=== PATIENT | female | born 1935 | race Caucasian/White ===

== ENCOUNTER 2018-02-03 16:54 | Inpatient (IN) | payer MEDICARE, OTHER ==
[~2018-02-03] VITALS: Ht 170.2 cm; Wt 46.0 kg
[~2018-02-03 16:54] MED LIST: ALPR-623 PO; ASPI-1264 PO; ATOR20TA PO; BUTA-281 PO; CARV6.252 PO; DIGO125T PO; FENO135C PO; FURO-150 PO; ISOS30TA9 PO; LANTUS SUBCUT; LISI-604 PO; NITR0.4T48 SL; OMEG1CAP PO; POTA10TA19 PO; SYN0.112T PO; ZOLP10TA5 PO
[2018-02-03 17:24] LABS: BASOPHILS # (AUTO) 0.1 X10'3 (0-0.2); BASOPHILS % (AUTO) 1.2 % (0-1); EOSINOPHILS # (AUTO) 0.2 X10'3 (0-0.9); EOSINOPHILS % (AUTO) 1.7 % (0-6); HEMATOCRIT 45.4 % (35.0-45.0); HEMOGLOBIN 15.1 g/dl (12.0-16.0); LYMPHOCYTES # (AUTO) 3.6 X10'3 (1.1-4.8); LYMPHOCYTES % (AUTO) 28.8 % (21-51); MEAN CORPUSCULAR HEMOGLOBIN 30.1 PG (27.0-31.0); MEAN CORPUSCULAR HGB CONC 33.3 % (33.0-36.5); MEAN CORPUSCULAR VOLUME 90.2 FL (78-98); MEAN PLATELET VOLUME 7.8 FL (7.4-10.4); MONOCYTES # (AUTO) 1.4 X10'3 (0-0.9); MONOCYTES % (AUTO) 11.4 % (2-12); NEUTROPHILS # (AUTO) 7.1 X10'3 (1.8-7.7); NEUTROPHILS % (AUTO) 56.9 % (42-75); PLATELET COUNT 317 X10'3 (140-440); RED BLOOD COUNT 5.03 X10'6 (4.20-5.60); RED CELL DISTRIBUTION WIDTH 13.6 % (11.5-14.5); WHITE BLOOD COUNT 12.4 X10'3 (4.5-11.0)
[2018-02-03 17:35] LABS: PARTIAL THROMBOPLASTIN TIME 24 SECONDS (22-32); PROTHROMBIN TIME 10.1 SECONDS (9.0-12.0)
[2018-02-03 17:40] LABS: ALANINE AMINOTRANSFERASE 39 U/L (12-78); ALBUMIN/GLOBULIN RATIO 0.9 (1.1-1.5); ALKALINE PHOSPHATASE 67 IU/L (46-116); ANION GAP 13 (8-16); ASPARTATE AMINO TRANSFERASE 28 U/L (10-37); BILIRUBIN,TOTAL 0.5 MG/DL (0.1-1.0); BLOOD UREA NITROGEN 40 MG/DL (7-18); BUN/CREATININE RATIO 25.6 (6.6-38.0); CHLORIDE 97 MMOL/L (99-107); CREATININE 1.56 MG/DL (0.40-0.90); GLUCOSE 257 MG/DL (70-104); POTASSIUM 3.7 MMOL/L (3.5-5.1); SODIUM 135 MMOL/L (135-145); TOTAL CARBON DIOXIDE 24.8 MMOL/L (24-32); TOTAL PROTEIN 8.5 G/DL (6.4-8.2); eGFR 32 ML/MIN
[2018-02-03] MEDS ORDERED: normal saline 1000ml 1,000 ML IV ONE (17:50)
[2018-02-03] MEDS ORDERED: LIDOcaine 1% 30ml preserv. free vial IJ ONE (18:05)
[2018-02-03] MEDS ORDERED: HYDROcodone/acetaminophen 5mg/325mg tablet PO ONE (18:45)
[2018-02-03] MEDS ORDERED: morphine 4 MG/ML inj SYRINge IV ONE (20:40)
[2018-02-03] MEDS ORDERED: temazepam 15mg capsule PO PRN (21:00)
[2018-02-03] MEDS ORDERED: magnesium 4gm in 100ml NS 100 ML IV PRN (22:45)
[2018-02-03] MEDS ORDERED: magnesium 1gm/100ml D5W IVPB 100 ML IV PRN (22:45)
[2018-02-03] MEDS ORDERED: potassium Cl 40MEQ/NS 500ml 500 ML IV PRN ×2 (22:45)
[2018-02-03] MEDS ORDERED: acetaminophen 325mg tablet PO PRN ×2 (22:45)
[2018-02-03] MEDS ORDERED: magnesium hydroxide 30ml (MOM) UD suspension PO PRN (22:45)
[2018-02-03] MEDS ORDERED: magnesium Cl slow-release 64mg tablet PO PRN (22:45)
[2018-02-03] MEDS ORDERED: HYDROmorphone inj. 0.5 MG/0.5 ML DISP.SYRIN IV PRN ×2 (22:45)
[2018-02-03] MEDS ORDERED: ondansetron/PF 4mg/2ml inj IV PRN (22:45)
[2018-02-03] MEDS ORDERED: mag hydrox/Alum hydrox/simeth 30ml oral suspension PO PRN (22:45)
[2018-02-03] MEDS ORDERED: potassium Cl 20 mEq SR tablet PO PRN ×2 (22:45)
[2018-02-03] MEDS ORDERED: nitroGLYCERIN 0.4mg SUBLingual tab SL PRN (22:55)
[2018-02-03] MEDS ORDERED: non-formulary drug (Zolpidem Tartrate* (Ambien*) 1 TAB) PO SCH (22:55)
[2018-02-03] MEDS ORDERED: ALPRAZolam 0.25mg tablet PO PRN (22:55)
[2018-02-03 23:28] LABS: CLARITY,URINE CLEAR (Clear); COLOR,URINE YELLOW (Yellow); GLUCOSE, URINE NEGATIVE (Neg); KETONES,URINE NEGATIVE (Neg); LEUKOCYTE ESTERASE ,URINE SMALL (Neg); NITRITES, URINE NEGATIVE (Neg); OCCULT BLOOD,URINE TRACE-INTACT (Neg); PROTEIN,URINE NEGATIVE (Neg); UROBILINOGEN,URINE 0.2 E.U/dL (0.2-1.0)
[2018-02-03 23:35] LABS: UA COLLECTION TYPE CLN CATCH MIDSTREAM
[2018-02-03 23:36] LABS: RBC,URINE 0-2 /HPF (0-2); SQUAMOUS EPITHELIAL CELL,UR MODERATE /LPF (FEW); WBC,URINE 20-30 /HPF (0-4)
[2018-02-03 23:37] LABS: BACTERIA,URINE FEW /HPF (Neg); TRANSITIONAL EPI CELLS,URINE FEW /HPF
[2018-02-03 23:48] LABS: MAGNESIUM 2.3 MG/DL (1.5-2.4); PHOSPHORUS 3.3 MG/DL (2.3-4.5)
[2018-02-04] VITALS: BP 160/61
[2018-02-04] MEDS: normal saline 1000ml 1,000 ML IV SCH ×3 (00:30→21:38)
[2018-02-04] MEDS ORDERED: HYDROmorphone 1 mg/ml syringe ONE (04:41)
[2018-02-04 06:07] LABS: HEMATOCRIT 38.6 % (35.0-45.0); HEMOGLOBIN 13.2 g/dl (12.0-16.0); MEAN CORPUSCULAR HEMOGLOBIN 30.8 PG (27.0-31.0); MEAN CORPUSCULAR HGB CONC 34.2 % (33.0-36.5); MEAN CORPUSCULAR VOLUME 89.9 FL (78-98); PLATELET COUNT 247 X10'3 (140-440); RED CELL DISTRIBUTION WIDTH 13.6 % (11.5-14.5)
[2018-02-04 06:17] LABS: ALBUMIN 3.2 G/DL (3.4-5.0); ANION GAP 12 (8-16); BLOOD UREA NITROGEN 37 MG/DL (7-18); BUN/CREATININE RATIO 31.6 (6.6-38.0); CHLORIDE 102 MMOL/L (99-107); CHOL/HDL RATIO 5.9 (0.00-4.99); CHOLESTEROL 190 MG/DL (0-200); CREATININE 1.17 MG/DL (0.40-0.90); GLUCOSE 197 MG/DL (70-104); HDL CHOLESTEROL 32 MG/DL (35-60); LDL CHOLESTEROL 102 MG/DL (50-100); MAGNESIUM 2.3 MG/DL (1.5-2.4); PHOSPHORUS 3.1 MG/DL (2.3-4.5); POTASSIUM 3.7 MMOL/L (3.5-5.1); SODIUM 138 MMOL/L (135-145); TOTAL CARBON DIOXIDE 24.4 MMOL/L (24-32); TRIGLYCERIDES 371 MG/DL (20-135); eGFR 45 ML/MIN
[2018-02-04 06:46] LABS: HEMOGLOBIN A1C 8.1 % (4.5-6.2)
[2018-02-04] MEDS: lisinopril 5mg tablet PO SCH (07:58)
[2018-02-04] MEDS: digoxin 125mcg (0.125mg) tablet PO SCH (07:59)
[2018-02-04] MEDS: carvedilol 6.25mg tablet PO SCH ×2 (07:59→20:38)
[2018-02-04] MEDS: levoTHYROXINE 112mcg tablet PO SCH (07:59)
[2018-02-04] MEDS: furosemide 40mg tablet PO SCH ×2 (07:59→20:38)
[2018-02-04] MEDS: isosorbide mononitrate 30mg tab.SR.24H PO SCH (08:00)
[2018-02-04] MEDS: fenofibrate 145mg tablet PO SCH (08:00)
[2018-02-04] MEDS: potassium chloride 10mEq ER tablet PO SCH (08:00)
[2018-02-04] MEDS ORDERED: isosorbide dinitrate 30mg tablet PO SCH (08:00)
[2018-02-04] MEDS: K and/or MAG REPLACEMENT MC SCH (08:00)
[2018-02-04] MEDS: HYDROcodone/acetaminophen 10/325mg tab PO PRN ×3 (08:41→19:04)
[2018-02-04] MEDS ORDERED: dextrose 50%-water 50ml dispensing syringe IV PRN ×2 (09:40)
[2018-02-04] MEDS ORDERED: MESSAGE TO PHARMACY PO ONE (09:40)
[2018-02-04] MEDS ORDERED: glucagon, human recombinant 1mg kit SUBCUT PRN (09:40)
[2018-02-04] MEDS ORDERED: dextrose ORAL solution 15 GM/59 ML bottle PO PRN ×2 (09:40)
[2018-02-04 10:00] VITALS: BP 138/54
[2018-02-04] MEDS: CefTRIAXone/D5W-Rocephin 1gm 50 ML IV SCH (10:17)
[2018-02-04] MEDS ORDERED: HYDROmorphone 1 mg/ml syringe IV PRN (13:37)
[2018-02-04] MEDS: insulin Lispro (HumaLOG) vial - multi-dose SQ SCH ×2 (13:49→19:06)
[2018-02-04 18:00] VITALS: BP 117/43
[2018-02-04] MEDS ORDERED: atorvastatin 10mg tablet PO SCH (21:00)
[2018-02-04] MEDS ORDERED: insulin glargine (Lantus) pen - multi-dose SQ SCH ×2 (21:00)
[2018-02-04 22:00] VITALS: BP 110/53
[2018-02-05 02:00] VITALS: BP 92/52
[2018-02-05] MEDS: normal saline 1000ml 1,000 ML IV SCH (02:59)
[2018-02-05] MEDS: HYDROcodone/acetaminophen 10/325mg tab PO PRN (04:55)
[2018-02-05 05:57] LABS: HEMATOCRIT 34.1 % (35.0-45.0); HEMOGLOBIN 11.4 g/dl (12.0-16.0); MEAN CORPUSCULAR HEMOGLOBIN 30.3 PG (27.0-31.0); MEAN CORPUSCULAR HGB CONC 33.6 % (33.0-36.5); MEAN CORPUSCULAR VOLUME 90.1 FL (78-98); MEAN PLATELET VOLUME 7.7 FL (7.4-10.4); PLATELET COUNT 255 X10'3 (140-440); RED BLOOD COUNT 3.78 X10'6 (4.20-5.60); WHITE BLOOD COUNT 9.2 X10'3 (4.5-11.0)
[2018-02-05 06:00] VITALS: BP 168/45
[2018-02-05 07:00] LABS: ALBUMIN 2.8 G/DL (3.4-5.0); ANION GAP 4 (8-16); BLOOD UREA NITROGEN 42 MG/DL (7-18); BUN/CREATININE RATIO 29.8 (6.6-38.0); CALCIUM 8.2 MG/DL (8.5-10.1); CHLORIDE 104 MMOL/L (99-107); CREATININE 1.41 MG/DL (0.40-0.90); GLUCOSE 167 MG/DL (70-104); MAGNESIUM 2.4 MG/DL (1.5-2.4); PHOSPHORUS 3.2 MG/DL (2.3-4.5); POTASSIUM 3.6 MMOL/L (3.5-5.1); SODIUM 134 MMOL/L (135-145); TOTAL CARBON DIOXIDE 26.3 MMOL/L (24-32); eGFR 36 ML/MIN
[2018-02-05] MEDS: K and/or MAG REPLACEMENT MC SCH (07:48)
[2018-02-05] MEDS: fenofibrate 145mg tablet PO SCH (07:52)
[2018-02-05] MEDS: isosorbide mononitrate 30mg tab.SR.24H PO SCH (07:52)
[2018-02-05] MEDS: potassium chloride 10mEq ER tablet PO SCH (07:52)
[2018-02-05] MEDS: lisinopril 5mg tablet PO SCH (07:52)
[2018-02-05] MEDS: levoTHYROXINE 112mcg tablet PO SCH (07:53)
[2018-02-05] MEDS: furosemide 40mg tablet PO SCH (07:53)
[2018-02-05] MEDS: carvedilol 6.25mg tablet PO SCH (07:53)
[2018-02-05] MEDS: digoxin 125mcg (0.125mg) tablet PO SCH (07:55)
[2018-02-05] MEDS: CefTRIAXone/D5W-Rocephin 1gm 50 ML IV SCH (07:55)
[2018-02-05] MEDS: HYDROcodone/acetaminophen 5mg/325mg tablet PO PRN ×2 (08:31→12:30)
[2018-02-05] MEDS: insulin Lispro (HumaLOG) vial - multi-dose SQ SCH ×2 (08:35→13:22)
[2018-02-05 10:00] VITALS: BP 118/58
[2018-02-05 10:30] VITALS: BP 133/41
[2018-02-05] MEDS ORDERED: FURO-150 PO (13:08)
[2018-02-05] MEDS ORDERED: LEVO500T2 PO (13:13)
[2018-02-05] MEDS ORDERED: HYDR-565 PO (14:51)
[2018-02-05] MEDS ORDERED: lactobacillus rhamnosus 10,000 MMU CELLS/CAPSULE PO SCH (20:00)
== END 2018-02-05 16:07 | disposition home or self-care (01) | DRG 683 ==
LOC: ER 16:55 → ED HOLD 22:45 → ORTHO 4S 23:59
PROVIDERS: ADMIT Family Medicine; ATTEND Internal Medicine
PROC: 2W38X1Z Immobilization of Right Upper Extremity using Splint (ICD-10-PCS; principal; 2018-02-03)
PROC: 4B02XSZ Measurement of Cardiac Pacemaker, External Approach (ICD-10-PCS; 2018-02-03)
PROC: 4A10X4Z Monitoring of Central Nervous Electrical Activity, External Approach (ICD-10-PCS; 2018-02-04)
DX: N17.9 Acute kidney failure, unspecified (principal); S42.201A Unspecified fracture of upper end of right humerus, initial encounter for closed fracture; I50.22 Chronic systolic (congestive) heart failure; N39.0 Urinary tract infection, site not specified; I13.0 Hypertensive heart and chronic kidney disease with heart failure and stage 1 through stage 4 chronic kidney disease, or unspecified chronic kidney disease; E86.0 Dehydration; E03.9 Hypothyroidism, unspecified; E11.51 Type 2 diabetes mellitus with diabetic peripheral angiopathy without gangrene; E78.5 Hyperlipidemia, unspecified; W18.39XA Other fall on same level, initial encounter; F41.9 Anxiety disorder, unspecified; F32.9 Major depressive disorder, single episode, unspecified; G43.909 Migraine, unspecified, not intractable, without status migrainosus; I08.1 Rheumatic disorders of both mitral and tricuspid valves; I27.20 Pulmonary hypertension, unspecified; E11.22 Type 2 diabetes mellitus with diabetic chronic kidney disease; I25.10 Atherosclerotic heart disease of native coronary artery without angina pectoris; Z60.2 Problems related to living alone; Z66 Do not resuscitate; Z53.20 Procedure and treatment not carried out because of patient's decision for unspecified reasons; Z90.49 Acquired absence of other specified parts of digestive tract; Z95.0 Presence of cardiac pacemaker; Z95.1 Presence of aortocoronary bypass graft; Z95.5 Presence of coronary angioplasty implant and graft; Z79.82 Long term (current) use of aspirin; Z79.4 Long term (current) use of insulin; Z79.890 Hormone replacement therapy; Z79.899 Other long term (current) drug therapy; Z95.820 Peripheral vascular angioplasty status with implants and grafts; Z87.891 Personal history of nicotine dependence; Y93.89 Activity, other specified; Y92.89 Other specified places as the place of occurrence of the external cause; Y99.8 Other external cause status
CPT/HCPCS: 36415; 70450; 71045; 72125; 73030; 80048; 80053; 80061; 80162; 81001; 82948; 83036; 83735; 84100; 84443; 84484; 85025; 85027; 85610; 85730; 86885; 86900; 86901; 87070; 87088; 93005; 93306; 95816; 96361; 96374; 97116; 97161; 99285; A6449; J0696; J1170; J1815; J2270; J3490; J7030

== ENCOUNTER 2018-02-08 11:34 | Inpatient (IN) | payer MEDICARE, OTHER ==
[~2018-02-08] VITALS: Ht 170.2 cm; Wt 46.8 kg
[~2018-02-08 11:34] MED LIST changes: +HYDR-565 PO; +LEVO500T2 PO
[2018-02-08] MEDS ORDERED: HYDROcodone/acetaminophen 5mg/325mg tablet PO ONE (12:50)
[2018-02-08] MEDS ORDERED: ondansetron/PF 4mg/2ml inj IV ONE (14:00)
[2018-02-08] MEDS ORDERED: morphine 4 MG/ML inj SYRINge IV ONE (14:00)
[2018-02-08 14:27] LABS: BASOPHILS % (AUTO) 0.4 % (0-1); EOSINOPHILS # (AUTO) 0.5 X10'3 (0-0.9); EOSINOPHILS % (AUTO) 4.7 % (0-6); HEMOGLOBIN 12.4 g/dl (12.0-16.0); MEAN CORPUSCULAR HEMOGLOBIN 30.4 PG (27.0-31.0); MEAN CORPUSCULAR HGB CONC 33.5 % (33.0-36.5); MEAN CORPUSCULAR VOLUME 90.6 FL (78-98); MEAN PLATELET VOLUME 7.7 FL (7.4-10.4); MONOCYTES # (AUTO) 0.9 X10'3 (0-0.9); MONOCYTES % (AUTO) 8.6 % (2-12); NEUTROPHILS # (AUTO) 6.6 X10'3 (1.8-7.7); NEUTROPHILS % (AUTO) 59.3 % (42-75); PLATELET COUNT 297 X10'3 (140-440); RED BLOOD COUNT 4.08 X10'6 (4.20-5.60); RED CELL DISTRIBUTION WIDTH 13.9 % (11.5-14.5); WHITE BLOOD COUNT 11.1 X10'3 (4.5-11.0)
[2018-02-08 14:38] LABS: PARTIAL THROMBOPLASTIN TIME 25 SECONDS (22-32); PROTHROMBIN TIME 9.9 SECONDS (9.0-12.0)
[2018-02-08 14:44] LABS: ALANINE AMINOTRANSFERASE 29 U/L (12-78); ALBUMIN 3.2 G/DL (3.4-5.0); ALBUMIN/GLOBULIN RATIO 0.8 (1.1-1.5); ALKALINE PHOSPHATASE 57 IU/L (46-116); ANION GAP 10 (8-16); ASPARTATE AMINO TRANSFERASE 18 U/L (10-37); BILIRUBIN,TOTAL 0.4 MG/DL (0.1-1.0); BLOOD UREA NITROGEN 27 MG/DL (7-18); BUN/CREATININE RATIO 23.1 (6.6-38.0); CALCIUM 9.1 MG/DL (8.5-10.1); CHLORIDE 104 MMOL/L (99-107); CREATININE 1.17 MG/DL (0.40-0.90); GLUCOSE 201 MG/DL (70-104); POTASSIUM 4.5 MMOL/L (3.5-5.1); SODIUM 137 MMOL/L (135-145); TOTAL CARBON DIOXIDE 23.2 MMOL/L (24-32); eGFR 45 ML/MIN
[2018-02-08] MEDS ORDERED: BENZ-16 PO (15:51)
[2018-02-08] MEDS ORDERED: PRED20TA PO (15:51)
[2018-02-08] MEDS ORDERED: LEVO750T21 PO (15:51)
[2018-02-08] MEDS ORDERED: ALBU8.5H8 IH (15:51)
[2018-02-08] MEDS ORDERED: FENO135C PO (16:52)
[2018-02-08] MEDS ORDERED: ipratropium/albuterol 3ml nebule NEB PRN (16:55)
[2018-02-08] MEDS ORDERED: morphine 2 MG/ML inj. syringe IV PRN (16:55)
[2018-02-08] MEDS ORDERED: potassium Cl 20 mEq SR tablet PO PRN ×2 (16:55)
[2018-02-08] MEDS ORDERED: magnesium 4gm in 100ml NS 100 ML IV PRN (16:55)
[2018-02-08] MEDS ORDERED: magnesium 1gm/100ml D5W IVPB 100 ML IV PRN (16:55)
[2018-02-08] MEDS ORDERED: acetaminophen 325mg tablet PO PRN (16:55)
[2018-02-08] MEDS ORDERED: magnesium hydroxide 30ml (MOM) UD suspension PO PRN (16:55)
[2018-02-08] MEDS ORDERED: potassium Cl 40MEQ/NS 500ml 500 ML IV PRN ×2 (16:55)
[2018-02-08] MEDS ORDERED: ondansetron/PF 4mg/2ml inj IV PRN (16:55)
[2018-02-08] MEDS ORDERED: mag hydrox/Alum hydrox/simeth 30ml oral suspension PO PRN (16:55)
[2018-02-08] MEDS ORDERED: benzonatate 100mg capsule PO PRN (17:00)
[2018-02-08] MEDS ORDERED: butalbital/acetaminophen/caffeine (Fioricet) tablet PO PRN (17:00)
[2018-02-08] MEDS ORDERED: MESSAGE TO PHARMACY PO ONE (17:05)
[2018-02-08] MEDS ORDERED: glucagon, human recombinant 1mg kit SUBCUT PRN (17:05)
[2018-02-08] MEDS ORDERED: dextrose ORAL solution 15 GM/59 ML bottle PO PRN ×2 (17:05)
[2018-02-08] MEDS ORDERED: dextrose 50%-water 50ml dispensing syringe IV PRN ×2 (17:05)
[2018-02-08] MEDS ORDERED: zolpidem 5mg tablet PO PRN (17:20)
[2018-02-08] MEDS: morphine 2 MG/ML inj. syringe IV PRN (18:10)
[2018-02-08] MEDS: lisinopril 5mg tablet PO SCH (18:10)
[2018-02-08] MEDS: carvedilol 6.25mg tablet PO SCH (19:18)
[2018-02-08] MEDS: acetaminophen 325mg tablet PO PRN (19:18)
[2018-02-08] MEDS: furosemide 20MG tablet PO SCH (19:18)
[2018-02-08] MEDS: omega-3 acid ethyl esters 1GM capsule PO SCH (20:00)
[2018-02-08 21:00] VITALS: BP 169/45
[2018-02-08] MEDS: insulin glargine (Lantus) pen - multi-dose SQ SCH (21:00)
[2018-02-08] MEDS: atorvastatin 20mg tablet PO SCH (21:59)
[2018-02-09] MEDS: heparin, porcine 5000 units/ml vial SQ SCH
[2018-02-09] MEDS: morphine 2 MG/ML inj. syringe IV PRN ×4 (02:34→19:08)
[2018-02-09 06:00] VITALS: BP 166/55
[2018-02-09 06:01] LABS: BASOPHILS # (AUTO) 0.1 X10'3 (0-0.2); BASOPHILS % (AUTO) 0.7 % (0-1); EOSINOPHILS # (AUTO) 0.9 X10'3 (0-0.9); EOSINOPHILS % (AUTO) 8.7 % (0-6); HEMATOCRIT 39.5 % (35.0-45.0); HEMOGLOBIN 13.5 g/dl (12.0-16.0); LYMPHOCYTES # (AUTO) 3.2 X10'3 (1.1-4.8); LYMPHOCYTES % (AUTO) 32.6 % (21-51); MEAN CORPUSCULAR HEMOGLOBIN 30.7 PG (27.0-31.0); MEAN CORPUSCULAR HGB CONC 34.2 % (33.0-36.5); MEAN CORPUSCULAR VOLUME 89.8 FL (78-98); MEAN PLATELET VOLUME 7.9 FL (7.4-10.4); MONOCYTES % (AUTO) 10.1 % (2-12); NEUTROPHILS # (AUTO) 4.8 X10'3 (1.8-7.7); NEUTROPHILS % (AUTO) 47.9 % (42-75); PLATELET COUNT 333 X10'3 (140-440); RED CELL DISTRIBUTION WIDTH 14.4 % (11.5-14.5)
[2018-02-09 06:35] LABS: ALANINE AMINOTRANSFERASE 27 U/L (12-78); ALBUMIN 3.2 G/DL (3.4-5.0); ALBUMIN/GLOBULIN RATIO 0.8 (1.1-1.5); ALKALINE PHOSPHATASE 62 IU/L (46-116); ANION GAP 10 (8-16); ASPARTATE AMINO TRANSFERASE 14 U/L (10-37); BILIRUBIN,TOTAL 0.5 MG/DL (0.1-1.0); BLOOD UREA NITROGEN 24 MG/DL (7-18); BUN/CREATININE RATIO 20.7 (6.6-38.0); CALCIUM 9.1 MG/DL (8.5-10.1); CHLORIDE 104 MMOL/L (99-107); CHOL/HDL RATIO 4.9 (0.00-4.99); CHOLESTEROL 176 MG/DL (0-200); CREATININE 1.16 MG/DL (0.40-0.90); GLUCOSE 169 MG/DL (70-104); HDL CHOLESTEROL 36 MG/DL (35-60); POTASSIUM 4.3 MMOL/L (3.5-5.1); SODIUM 139 MMOL/L (135-145); TOTAL CARBON DIOXIDE 25.4 MMOL/L (24-32); TOTAL PROTEIN 7.3 G/DL (6.4-8.2); TRIGLYCERIDES 267 MG/DL (20-135); eGFR 45 ML/MIN
[2018-02-09] MEDS ORDERED: levoFLOXACIN 750MG TABLET PO SCH (08:00)
[2018-02-09] MEDS: K and/or MAG REPLACEMENT MC SCH (08:00)
[2018-02-09] MEDS: carvedilol 6.25mg tablet PO SCH ×2 (08:16→20:31)
[2018-02-09] MEDS: potassium chloride 10mEq ER tablet PO SCH (08:16)
[2018-02-09] MEDS: furosemide 20MG tablet PO SCH ×2 (08:16→20:31)
[2018-02-09] MEDS: levoTHYROXINE 112mcg tablet PO SCH (08:16)
[2018-02-09] MEDS: lisinopril 5mg tablet PO SCH (08:16)
[2018-02-09] MEDS: omega-3 acid ethyl esters 1GM capsule PO SCH ×2 (08:17→20:31)
[2018-02-09] MEDS: fenofibrate 145mg tablet PO SCH (08:17)
[2018-02-09] MEDS: digoxin 125mcg (0.125mg) tablet PO SCH (08:21)
[2018-02-09 10:00] VITALS: BP 165/68
[2018-02-09] MEDS: insulin Lispro (HumaLOG) vial - multi-dose SQ SCH ×3 (10:36→19:13)
[2018-02-09 13:40] LABS: LDL CHOLESTEROL 100 MG/DL (50-100)
[2018-02-09] MEDS ORDERED: ceFAZolin 1GM/D5W- ADD-VANTAGE 50 ML IV ONE (16:00)
[2018-02-09] MEDS: isosorbide dinitrate 30mg tablet PO SCH (17:31)
[2018-02-09 18:00] VITALS: BP 188/50
[2018-02-09] MEDS: ALPRAZolam 0.25mg tablet PO PRN (20:30)
[2018-02-09] MEDS: lactobacillus rhamnosus 10,000 MMU CELLS/CAPSULE PO SCH (20:30)
[2018-02-09] MEDS: atorvastatin 20mg tablet PO SCH (20:31)
[2018-02-09] MEDS: lisinopril 20mg tablet PO SCH (21:03)
[2018-02-09] MEDS: insulin glargine (Lantus) pen - multi-dose SQ SCH (21:05)
[2018-02-09 22:00] VITALS: BP 115/52
[2018-02-10] VITALS (17 sets, daily range): BP systolic 103–178; BP diastolic 34–85
[2018-02-10 06:10] LABS: BASOPHILS % (AUTO) 0.5 % (0-1); EOSINOPHILS # (AUTO) 0.5 X10'3 (0-0.9); EOSINOPHILS % (AUTO) 5.1 % (0-6); HEMATOCRIT 38.1 % (35.0-45.0); HEMOGLOBIN 12.9 g/dl (12.0-16.0); LYMPHOCYTES # (AUTO) 2.7 X10'3 (1.1-4.8); LYMPHOCYTES % (AUTO) 28.8 % (21-51); MEAN CORPUSCULAR HEMOGLOBIN 31.1 PG (27.0-31.0); MEAN CORPUSCULAR HGB CONC 33.9 % (33.0-36.5); MEAN CORPUSCULAR VOLUME 91.7 FL (78-98); MEAN PLATELET VOLUME 8.1 FL (7.4-10.4); MONOCYTES # (AUTO) 0.9 X10'3 (0-0.9); MONOCYTES % (AUTO) 9.1 % (2-12); NEUTROPHILS # (AUTO) 5.4 X10'3 (1.8-7.7); NEUTROPHILS % (AUTO) 56.5 % (42-75); PLATELET COUNT 329 X10'3 (140-440); RED BLOOD COUNT 4.16 X10'6 (4.20-5.60); RED CELL DISTRIBUTION WIDTH 13.3 % (11.5-14.5); WHITE BLOOD COUNT 9.5 X10'3 (4.5-11.0)
[2018-02-10 06:13] LABS: ALANINE AMINOTRANSFERASE 20 U/L (12-78); ALBUMIN 2.9 G/DL (3.4-5.0); ALBUMIN/GLOBULIN RATIO 0.7 (1.1-1.5); ALKALINE PHOSPHATASE 63 IU/L (46-116); ANION GAP 9 (8-16); ASPARTATE AMINO TRANSFERASE 21 U/L (10-37); BILIRUBIN,TOTAL 0.5 MG/DL (0.1-1.0); BLOOD UREA NITROGEN 37 MG/DL (7-18); BUN/CREATININE RATIO 21.4 (6.6-38.0); CALCIUM 9.1 MG/DL (8.5-10.1); CHLORIDE 102 MMOL/L (99-107); CREATININE 1.73 MG/DL (0.40-0.90); GLUCOSE 161 MG/DL (70-104); POTASSIUM 4.4 MMOL/L (3.5-5.1); SODIUM 135 MMOL/L (135-145); TOTAL CARBON DIOXIDE 23.7 MMOL/L (24-32); TOTAL PROTEIN 6.9 G/DL (6.4-8.2); eGFR 28 ML/MIN
[2018-02-10] MEDS ORDERED: ceFAZolin 1000mg inj ONE (07:31)
[2018-02-10] MEDS: carvedilol 6.25mg tablet PO SCH ×2 (07:47→20:14)
[2018-02-10] MEDS: levoTHYROXINE 112mcg tablet PO SCH (07:47)
[2018-02-10] MEDS: K and/or MAG REPLACEMENT MC SCH (08:00)
[2018-02-10] MEDS: omega-3 acid ethyl esters 1GM capsule PO SCH ×2 (08:00→20:14)
[2018-02-10] MEDS: heparin, porcine 5000 units/ml vial SQ SCH ×2 (08:00→15:01)
[2018-02-10] MEDS: digoxin 125mcg (0.125mg) tablet PO SCH (08:00)
[2018-02-10] MEDS ORDERED: sevoflurane 250ml liquid IH ONE (08:06)
[2018-02-10] MEDS ORDERED: cloNIDine hcl/PF 100mcg/ml inj ONE (08:14)
[2018-02-10] MEDS ORDERED: ROPIVAcaine 0.5% (5mg/ml) 30ml vial ONE (08:14)
[2018-02-10] MEDS ORDERED: midazolam 2 mg/2 ml injection ONE (08:17)
[2018-02-10] MEDS ORDERED: fentaNYL/PF 50MCG/1 ML 2ML syringe ONE ×3 (08:17→10:04)
[2018-02-10] MEDS ORDERED: etomidate 2mg/ml inj. ONE (08:17)
[2018-02-10] MEDS ORDERED: dexamethasone sod phosphate 4mg/ml inj. ONE (08:25)
[2018-02-10] MEDS ORDERED: ePHEDrine 50MG/ML INJ. ONE (08:36)
[2018-02-10] MEDS ORDERED: ringers solution, lacted 1,000 ML IV SCH (08:59)
[2018-02-10] MEDS ORDERED: labetalol 20mg/4ml (5mg/ml) syringe IV PRN (09:00)
[2018-02-10] MEDS ORDERED: fentaNYL/PF 50MCG/1 ML 2ML syringe IV PRN ×2 (09:00)
[2018-02-10] MEDS ORDERED: morphine 4 MG/ML inj SYRINge IV PRN ×2 (09:00)
[2018-02-10] MEDS ORDERED: ondansetron/PF 4mg/2ml inj IV PRN (09:00)
[2018-02-10] MEDS ORDERED: ondansetron/PF 4mg/2ml inj ONE (09:25)
[2018-02-10] MEDS: insulin Lispro (HumaLOG) vial - multi-dose SQ SCH ×2 (13:16→18:41)
[2018-02-10] MEDS: lisinopril 20mg tablet PO SCH (14:59)
[2018-02-10] MEDS: isosorbide dinitrate 30mg tablet PO SCH (15:01)
[2018-02-10] MEDS: lactobacillus rhamnosus 10,000 MMU CELLS/CAPSULE PO SCH ×2 (16:25→20:14)
[2018-02-10] MEDS: potassium chloride 10mEq ER tablet PO SCH (16:27)
[2018-02-10] MEDS: acetaminophen 325mg tablet PO PRN (16:27)
[2018-02-10] MEDS: fenofibrate 145mg tablet PO SCH (16:27)
[2018-02-10] MEDS: ceFAZolin 1GM/D5W- ADD-VANTAGE 50 ML IV SCH (16:28)
[2018-02-10] MEDS: atorvastatin 20mg tablet PO SCH (21:00)
[2018-02-10] MEDS: insulin glargine (Lantus) pen - multi-dose SQ SCH (21:15)
[2018-02-11] VITALS (9 sets, daily range): BP systolic 86–151; BP diastolic 27–64
[2018-02-11] MEDS: ceFAZolin 1GM/D5W- ADD-VANTAGE 50 ML IV SCH ×4 (00:36→23:51)
[2018-02-11] MEDS: heparin, porcine 5000 units/ml vial SQ SCH ×4 (00:37→23:49)
[2018-02-11] MEDS: morphine 2 MG/ML inj. syringe IV PRN ×3 (00:40→10:41)
[2018-02-11] MEDS: ALPRAZolam 0.25mg tablet PO PRN (01:19)
[2018-02-11] MEDS ORDERED: HYDROcodone/acetaminophen 10/325mg tab PO PRN (05:25)
[2018-02-11 05:42] LABS: BASOPHILS % (AUTO) 0.3 % (0-1); EOSINOPHILS # (AUTO) 0.3 X10'3 (0-0.9); EOSINOPHILS % (AUTO) 2.6 % (0-6); HEMATOCRIT 37.8 % (35.0-45.0); HEMOGLOBIN 12.7 g/dl (12.0-16.0); LYMPHOCYTES # (AUTO) 3.1 X10'3 (1.1-4.8); LYMPHOCYTES % (AUTO) 24.3 % (21-51); MEAN CORPUSCULAR HEMOGLOBIN 30.7 PG (27.0-31.0); MEAN CORPUSCULAR HGB CONC 33.6 % (33.0-36.5); MEAN CORPUSCULAR VOLUME 91.3 FL (78-98); MEAN PLATELET VOLUME 7.6 FL (7.4-10.4); MONOCYTES # (AUTO) 1.1 X10'3 (0-0.9); MONOCYTES % (AUTO) 8.4 % (2-12); NEUTROPHILS # (AUTO) 8.4 X10'3 (1.8-7.7); NEUTROPHILS % (AUTO) 64.4 % (42-75); PLATELET COUNT 340 X10'3 (140-440); RED BLOOD COUNT 4.14 X10'6 (4.20-5.60); RED CELL DISTRIBUTION WIDTH 14.4 % (11.5-14.5)
[2018-02-11 05:59] LABS: ALANINE AMINOTRANSFERASE 21 U/L (12-78); ALBUMIN/GLOBULIN RATIO 0.8 (1.1-1.5); ALKALINE PHOSPHATASE 65 IU/L (46-116); ANION GAP 8 (8-16); ASPARTATE AMINO TRANSFERASE 26 U/L (10-37); BILIRUBIN,TOTAL 0.4 MG/DL (0.1-1.0); BLOOD UREA NITROGEN 38 MG/DL (7-18); BUN/CREATININE RATIO 26.6 (6.6-38.0); CALCIUM 9.5 MG/DL (8.5-10.1); CHLORIDE 104 MMOL/L (99-107); CREATININE 1.43 MG/DL (0.40-0.90); GLUCOSE 135 MG/DL (70-104); MAGNESIUM 2.1 MG/DL (1.5-2.4); POTASSIUM 4.3 MMOL/L (3.5-5.1); SODIUM 138 MMOL/L (135-145); TOTAL CARBON DIOXIDE 25.8 MMOL/L (24-32); TOTAL PROTEIN 6.9 G/DL (6.4-8.2); eGFR 35 ML/MIN
[2018-02-11] MEDS: K and/or MAG REPLACEMENT MC SCH (07:53)
[2018-02-11] MEDS ORDERED: levoFLOXACIN 750MG TABLET PO SCH (08:00)
[2018-02-11] MEDS ORDERED: furosemide 20MG tablet PO SCH (08:00)
[2018-02-11] MEDS: potassium chloride 10mEq ER tablet PO SCH (08:16)
[2018-02-11] MEDS: lactobacillus rhamnosus 10,000 MMU CELLS/CAPSULE PO SCH ×2 (08:16→20:11)
[2018-02-11] MEDS: omega-3 acid ethyl esters 1GM capsule PO SCH ×2 (08:17→20:11)
[2018-02-11] MEDS: levoTHYROXINE 112mcg tablet PO SCH (08:17)
[2018-02-11] MEDS: fenofibrate 145mg tablet PO SCH (08:18)
[2018-02-11] MEDS: lisinopril 20mg tablet PO SCH (08:18)
[2018-02-11] MEDS: isosorbide dinitrate 30mg tablet PO SCH (08:18)
[2018-02-11] MEDS: digoxin 125mcg (0.125mg) tablet PO SCH (08:19)
[2018-02-11] MEDS: carvedilol 6.25mg tablet PO SCH (08:19)
[2018-02-11] MEDS: insulin Lispro (HumaLOG) vial - multi-dose SQ SCH ×3 (08:55→18:51)
[2018-02-11] MEDS ORDERED: normal saline 500ml IV soln 1,000 ML IV SCH (11:20)
[2018-02-11] MEDS ORDERED: normal saline 500ml IV soln 1,000 ML IV ONE (11:25)
[2018-02-11] MEDS: HYDROcodone/acetaminophen 10/325mg tab PO PRN ×3 (12:34→21:40)
[2018-02-11] MEDS: carVEDilol 3.125mg tablet PO SCH (20:00)
[2018-02-11] MEDS: atorvastatin 20mg tablet PO SCH (20:11)
[2018-02-11] MEDS: insulin glargine (Lantus) pen - multi-dose SQ SCH (21:06)
[2018-02-12 01:44] LABS: CLARITY,URINE CLEAR (Clear); COLOR,URINE YELLOW (Yellow); GLUCOSE, URINE NEGATIVE (Neg); KETONES,URINE NEGATIVE (Neg); LEUKOCYTE ESTERASE ,URINE NEGATIVE (Neg); NITRITES, URINE NEGATIVE (Neg); OCCULT BLOOD,URINE NEGATIVE (Neg); PROTEIN,URINE NEGATIVE (Neg); UROBILINOGEN,URINE 0.2 E.U/dL (0.2-1.0)
[2018-02-12 01:46] LABS: UA COLLECTION TYPE NON-SPECIFIED
[2018-02-12] MEDS ORDERED: lisinopril 10 MG tablet PO ONE (04:45)
[2018-02-12 04:46] VITALS: BP 177/50
[2018-02-12] MEDS: HYDROcodone/acetaminophen 10/325mg tab PO PRN ×3 (04:57→13:14)
[2018-02-12 05:13] LABS: BASOPHILS # (AUTO) 0.1 X10'3 (0-0.2); BASOPHILS % (AUTO) 0.6 % (0-1); EOSINOPHILS # (AUTO) 0.5 X10'3 (0-0.9); HEMATOCRIT 32.4 % (35.0-45.0); HEMOGLOBIN 11.1 g/dl (12.0-16.0); LYMPHOCYTES # (AUTO) 2.7 X10'3 (1.1-4.8); LYMPHOCYTES % (AUTO) 26.6 % (21-51); MEAN CORPUSCULAR HGB CONC 34.3 % (33.0-36.5); MEAN CORPUSCULAR VOLUME 90.4 FL (78-98); MEAN PLATELET VOLUME 7.7 FL (7.4-10.4); MONOCYTES % (AUTO) 9.5 % (2-12); NEUTROPHILS % (AUTO) 58.3 % (42-75); PLATELET COUNT 330 X10'3 (140-440); RED BLOOD COUNT 3.58 X10'6 (4.20-5.60); RED CELL DISTRIBUTION WIDTH 14.4 % (11.5-14.5); WHITE BLOOD COUNT 10.3 X10'3 (4.5-11.0)
[2018-02-12 05:43] LABS: ALANINE AMINOTRANSFERASE 17 U/L (12-78); ALBUMIN 2.6 G/DL (3.4-5.0); ALBUMIN/GLOBULIN RATIO 0.7 (1.1-1.5); ALKALINE PHOSPHATASE 54 IU/L (46-116); ANION GAP 9 (8-16); ASPARTATE AMINO TRANSFERASE 16 U/L (10-37); BILIRUBIN,TOTAL 0.4 MG/DL (0.1-1.0); BLOOD UREA NITROGEN 38 MG/DL (7-18); BUN/CREATININE RATIO 24.5 (6.6-38.0); CALCIUM 8.9 MG/DL (8.5-10.1); CHLORIDE 107 MMOL/L (99-107); CREATININE 1.55 MG/DL (0.40-0.90); GLUCOSE 123 MG/DL (70-104); MAGNESIUM 2.1 MG/DL (1.5-2.4); POTASSIUM 4.3 MMOL/L (3.5-5.1); SODIUM 140 MMOL/L (135-145); TOTAL CARBON DIOXIDE 24.3 MMOL/L (24-32); TOTAL PROTEIN 6.1 G/DL (6.4-8.2); eGFR 32 ML/MIN
[2018-02-12 06:00] VITALS: BP 177/50
[2018-02-12] MEDS: carVEDilol 3.125mg tablet PO SCH (08:00)
[2018-02-12] MEDS ORDERED: lisinopril 10 MG tablet PO SCH (08:00)
[2018-02-12] MEDS: isosorbide dinitrate 30mg tablet PO SCH (08:00)
[2018-02-12] MEDS: K and/or MAG REPLACEMENT MC SCH (08:00)
[2018-02-12] MEDS: digoxin 125mcg (0.125mg) tablet PO SCH (08:00)
[2018-02-12] MEDS: insulin Lispro (HumaLOG) vial - multi-dose SQ SCH (09:02)
[2018-02-12] MEDS: ceFAZolin 1GM/D5W- ADD-VANTAGE 50 ML IV SCH (09:05)
[2018-02-12] MEDS: lactobacillus rhamnosus 10,000 MMU CELLS/CAPSULE PO SCH (09:10)
[2018-02-12] MEDS: omega-3 acid ethyl esters 1GM capsule PO SCH (09:11)
[2018-02-12] MEDS: fenofibrate 145mg tablet PO SCH (09:11)
[2018-02-12] MEDS: potassium chloride 10mEq ER tablet PO SCH (09:11)
[2018-02-12] MEDS: levoTHYROXINE 112mcg tablet PO SCH (09:11)
[2018-02-12] MEDS: heparin, porcine 5000 units/ml vial SQ SCH (09:12)
[2018-02-12 10:00] VITALS: BP 120/25
[2018-02-12 11:00] VITALS: BP 155/74
[2018-02-12] MEDS ORDERED: ZOLP5TAB8 PO (11:10)
[2018-02-12] MEDS ORDERED: LANTUS SQ (11:10)
[2018-02-12] MEDS ORDERED: COR3.125T PO (11:10)
[2018-02-12] MEDS ORDERED: FURO20TA4 PO (11:10)
== END 2018-02-12 13:15 | DRG 493 ==
LOC: ER 11:35 → ED HOLD 16:51 → EDBEDREQ 20:00 → ORTHO 4S 20:49
PROVIDERS: ADMIT Family Medicine; ATTEND Family Medicine
PROC: 3E0T3BZ Introduction of Anesthetic Agent into Peripheral Nerves and Plexi, Percutaneous Approach (ICD-10-PCS; 2018-02-10)
PROC: BW1J1ZZ Fluoroscopy of Upper Extremity using Low Osmolar Contrast (ICD-10-PCS; 2018-02-10)
PROC: 0PSC04Z Reposition Right Humeral Head with Internal Fixation Device, Open Approach (ICD-10-PCS; principal; 2018-02-10 08:06)
DX: S42.201A Unspecified fracture of upper end of right humerus, initial encounter for closed fracture (principal); N39.0 Urinary tract infection, site not specified; I13.0 Hypertensive heart and chronic kidney disease with heart failure and stage 1 through stage 4 chronic kidney disease, or unspecified chronic kidney disease; Z68.1 Body mass index [BMI] 19.9 or less, adult; I50.22 Chronic systolic (congestive) heart failure; E78.5 Hyperlipidemia, unspecified; E03.9 Hypothyroidism, unspecified; N18.3 Chronic kidney disease, stage 3 (moderate); I25.10 Atherosclerotic heart disease of native coronary artery without angina pectoris; E11.21 Type 2 diabetes mellitus with diabetic nephropathy; E11.22 Type 2 diabetes mellitus with diabetic chronic kidney disease; M85.80 Other specified disorders of bone density and structure, unspecified site; E11.51 Type 2 diabetes mellitus with diabetic peripheral angiopathy without gangrene; X58.XXXA Exposure to other specified factors, initial encounter; F41.9 Anxiety disorder, unspecified; I48.91 Unspecified atrial fibrillation; I95.9 Hypotension, unspecified; Z90.49 Acquired absence of other specified parts of digestive tract; Z95.0 Presence of cardiac pacemaker; Z95.1 Presence of aortocoronary bypass graft; Z98.61 Coronary angioplasty status; Z79.899 Other long term (current) drug therapy; Z79.82 Long term (current) use of aspirin; Z87.891 Personal history of nicotine dependence; Z80.3 Family history of malignant neoplasm of breast; Z80.8 Family history of malignant neoplasm of other organs or systems; Y93.89 Activity, other specified; Y92.89 Other specified places as the place of occurrence of the external cause; Y99.8 Other external cause status
CPT/HCPCS: 36415; 73060; 76001; 80053; 80061; 80162; 81003; 82948; 83605; 83735; 84443; 85025; 85610; 85730; 87040; 87070; 93005; 94760; 96374; 96375; 99285; A4565; A6454; A7000; C1713; J0690; J0735; J1100; J1644; J1815; J2250; J2270; J2405; J2795; J3010; J3370; J3490; J7030; J7120

== ENCOUNTER 2018-03-24 10:03 | Outpatient (CLI) | payer MEDICARE, OTHER ==
[2018-03-24 10:01] VITALS: BP 180/78
[~2018-03-24 10:03] MED LIST changes: -CARV6.252 PO; +COR3.125T PO; -FURO-150 PO; +FURO20TA4 PO; -HYDR-565 PO; +LANTUS SQ; -LANTUS SUBCUT; -LEVO500T2 PO; -POTA10TA19 PO; -ZOLP10TA5 PO; +ZOLP5TAB8 PO
== END 2018-03-24 10:46 | disposition home or self-care (01) ==
LOC: ORTHO 10:03
PROVIDERS: ATTEND Nurse Practitioner Family
DX: S42.291G Other displaced fracture of upper end of right humerus, subsequent encounter for fracture with delayed healing (principal); E11.9 Type 2 diabetes mellitus without complications; I11.0 Hypertensive heart disease with heart failure; I50.9 Heart failure, unspecified; I25.2 Old myocardial infarction; F41.9 Anxiety disorder, unspecified; Z87.891 Personal history of nicotine dependence; Z79.82 Long term (current) use of aspirin; X58.XXXD Exposure to other specified factors, subsequent encounter
CPT/HCPCS: 73030; 99213

== ENCOUNTER 2018-04-21 13:41 | Outpatient (CLI) | payer MEDICARE, OTHER ==
[2018-04-21 13:26] VITALS: BP 180/78
== END 2018-04-21 14:01 | disposition home or self-care (01) ==
LOC: ORTHO 13:41
PROVIDERS: ATTEND Nurse Practitioner Family
DX: S42.294D Other nondisplaced fracture of upper end of right humerus, subsequent encounter for fracture with routine healing (principal); I11.0 Hypertensive heart disease with heart failure; I50.9 Heart failure, unspecified; E11.9 Type 2 diabetes mellitus without complications; I25.2 Old myocardial infarction; Z87.891 Personal history of nicotine dependence; Z79.82 Long term (current) use of aspirin; Z79.4 Long term (current) use of insulin; X58.XXXD Exposure to other specified factors, subsequent encounter
CPT/HCPCS: 73030; 99213

== ENCOUNTER 2018-05-19 13:54 | Outpatient (CLI) | payer MEDICARE, OTHER ==
[2018-05-19 13:57] VITALS: BP 126/68
== END 2018-05-19 14:21 | disposition home or self-care (01) ==
LOC: ORTHO 13:54
PROVIDERS: ATTEND Nurse Practitioner Family
DX: S42.291D Other displaced fracture of upper end of right humerus, subsequent encounter for fracture with routine healing (principal); I11.0 Hypertensive heart disease with heart failure; I50.9 Heart failure, unspecified; I25.2 Old myocardial infarction; E11.9 Type 2 diabetes mellitus without complications; Z79.82 Long term (current) use of aspirin; Z87.891 Personal history of nicotine dependence; X58.XXXD Exposure to other specified factors, subsequent encounter
CPT/HCPCS: 73030; 99213

== ENCOUNTER 2018-07-21 13:46 | Outpatient (CLI) | payer MEDICARE, OTHER ==
[2018-07-21 13:58] VITALS: BP 186/100
[2018-07-21 14:07] VITALS: BP 158/81
== END 2018-07-21 15:25 | disposition home or self-care (01) ==
LOC: ORTHO 13:46
PROVIDERS: ATTEND Nurse Practitioner Family
DX: S42.291D Other displaced fracture of upper end of right humerus, subsequent encounter for fracture with routine healing (principal); I11.0 Hypertensive heart disease with heart failure; I50.9 Heart failure, unspecified; I25.2 Old myocardial infarction; E11.9 Type 2 diabetes mellitus without complications; Z79.82 Long term (current) use of aspirin; Z87.891 Personal history of nicotine dependence; X58.XXXD Exposure to other specified factors, subsequent encounter
CPT/HCPCS: 73030; 99213

== ENCOUNTER 2018-11-01 21:15 | Inpatient (IN) | payer MEDICARE, OTHER ==
[~2018-11-01] VITALS: Ht 170.2 cm; Wt 47.7 kg
[2018-11-01] MEDS ORDERED: normal saline 1000ml 1,000 ML IV ONE (21:20)
[2018-11-01 22:03] LABS: ALANINE AMINOTRANSFERASE 33 U/L (12-78); ALBUMIN 3.5 G/DL (3.4-5.0); ALBUMIN/GLOBULIN RATIO 0.9 (1.1-1.5); ALKALINE PHOSPHATASE 70 IU/L (46-116); ANION GAP 8 (8-16); ASPARTATE AMINO TRANSFERASE 30 U/L (10-37); BASOPHILS # (AUTO) 0.1 X10'3 (0-0.2); BILIRUBIN,TOTAL 0.3 MG/DL (0.1-1.0); BLOOD UREA NITROGEN 40 MG/DL (7-18); CALCIUM 8.5 MG/DL (8.5-10.1); CHLORIDE 106 MMOL/L (99-107); CREATININE 1.54 MG/DL (0.40-0.90); EOSINOPHILS # (AUTO) 0.3 X10'3 (0-0.9); EOSINOPHILS % (AUTO) 3.2 % (0-6); GLUCOSE 132 MG/DL (70-104); HEMOGLOBIN 12.4 g/dl (12.0-16.0); LYMPHOCYTES % (AUTO) 32.9 % (21-51); MEAN CORPUSCULAR HGB CONC 33.5 g/dL (33.0-36.5); MEAN CORPUSCULAR VOLUME 92.4 FL (78-98); MEAN PLATELET VOLUME 8.3 FL (7.4-10.4); MONOCYTES % (AUTO) 10.6 % (2-12); NEUTROPHILS # (AUTO) 4.7 X10'3 (1.8-7.7); NEUTROPHILS % (AUTO) 52.3 % (42-75); PLATELET COUNT 259 X10'3 (140-440); RED CELL DISTRIBUTION WIDTH 15.2 % (11.5-14.5); SODIUM 139 MMOL/L (135-145); TOTAL CARBON DIOXIDE 25.3 MMOL/L (24-32); TOTAL PROTEIN 7.4 G/DL (6.4-8.2); eGFR 32 ML/MIN
[2018-11-01 22:06] LABS: PARTIAL THROMBOPLASTIN TIME 29 SECONDS (22-32)
[2018-11-01] MEDS ORDERED: morphine 4 MG/ML inj SYRINge IV ONE (22:30)
[2018-11-01] MEDS ORDERED: morphine 2 MG/ML inj. syringe IV PRN ×2 (22:30→23:10)
[2018-11-01 22:31] LABS: CLARITY,URINE CLEAR (Clear); COLOR,URINE YELLOW (Yellow); GLUCOSE, URINE NEGATIVE (Neg); KETONES,URINE NEGATIVE (Neg); LEUKOCYTE ESTERASE ,URINE NEGATIVE (Neg); NITRITES, URINE NEGATIVE (Neg); OCCULT BLOOD,URINE NEGATIVE (Neg); PROTEIN,URINE TRACE mg/dl (Neg)
[2018-11-01 22:37] LABS: UA COLLECTION TYPE FOLEY CATH
[2018-11-01 22:48] LABS: BACTERIA,URINE FEW /HPF (Neg); RBC,URINE 0-2 /HPF (0-2); SQUAMOUS EPITHELIAL CELL,UR FEW /LPF (FEW); WBC,URINE 0-4 /HPF (0-4)
[2018-11-01] MEDS ORDERED: acetaminophen 325mg tablet PO PRN (23:10)
[2018-11-01] MEDS ORDERED: potassium CL 10mEq/100ml bag 100 ML IV PRN (23:10)
[2018-11-01] MEDS ORDERED: magnesium hydroxide 30ml (MOM) UD suspension PO PRN (23:10)
[2018-11-01] MEDS ORDERED: bisacodyl 10mg suppository rectal RC PRN (23:10)
[2018-11-01] MEDS ORDERED: magnesium Cl slow-release 64mg tablet PO PRN (23:10)
[2018-11-01] MEDS ORDERED: magnesium 4gm in 100ml NS 100 ML IV PRN (23:10)
[2018-11-01] MEDS ORDERED: potassium Cl 20 mEq SR tablet PO PRN ×2 (23:10)
[2018-11-01] MEDS ORDERED: mag hydrox/Alum hydrox/simeth 30ml oral suspension PO PRN (23:10)
[2018-11-01] MEDS ORDERED: HYDROcodone/acetaminophen 5mg/325mg tablet PO PRN (23:10)
[2018-11-01] MEDS ORDERED: potassium Cl 40MEQ/NS 500ml 500 ML IV PRN (23:10)
[2018-11-01] MEDS ORDERED: magnesium 2GM in 50ml NS 50 ML IV PRN (23:10)
[2018-11-01] MEDS ORDERED: dextrose 50%-water 50ml dispensing syringe IV PRN ×2 (23:15)
[2018-11-01] MEDS ORDERED: glucagon, human recombinant 1mg kit SUBCUT PRN (23:15)
[2018-11-01] MEDS ORDERED: MESSAGE TO PHARMACY PO ONE (23:15)
[2018-11-01] MEDS ORDERED: insulin Lispro (HumaLOG) vial - multi-dose SQ SCH (23:15)
[2018-11-01] MEDS ORDERED: dextrose ORAL solution 15 GM/59 ML bottle PO PRN ×2 (23:15)
[2018-11-01 23:29] LABS: HEMOGLOBIN A1C 6.3 % (4.5-6.2)
[2018-11-02] VITALS (25 sets, daily range): BP systolic 112–179; BP diastolic 43–83
[2018-11-02] MEDS: HYDROcodone/acetaminophen 10/325mg tab PO PRN ×5 (00:08→21:56)
[2018-11-02] MEDS: potassium cl 20mEq in 1/2 NS 1,000 ML IV SCH ×3 (00:25→20:26)
[2018-11-02 02:02] LABS: ALBUMIN 3.5 G/DL (3.4-5.0); ANION GAP 11 (8-16); BLOOD UREA NITROGEN 36 MG/DL (7-18); BUN/CREATININE RATIO 27.1 (6.6-38.0); CALCIUM 8.7 MG/DL (8.5-10.1); CHLORIDE 106 MMOL/L (99-107); CREATININE 1.33 MG/DL (0.40-0.90); GLUCOSE 149 MG/DL (70-104); POTASSIUM 4.1 MMOL/L (3.5-5.1); SODIUM 140 MMOL/L (135-145); TOTAL CARBON DIOXIDE 23.5 MMOL/L (24-32); eGFR 38 ML/MIN
[2018-11-02] MEDS ORDERED: morphine 4 MG/ML inj SYRINge IV ONE (05:40)
[2018-11-02 06:11] LABS: BASOPHILS # (AUTO) 0.1 X10'3 (0-0.2); BASOPHILS % (AUTO) 0.6 % (0-1); EOSINOPHILS % (AUTO) 0.5 % (0-6); HEMATOCRIT 33.9 % (35.0-45.0); HEMOGLOBIN 11.4 g/dl (12.0-16.0); LYMPHOCYTES # (AUTO) 1.6 X10'3 (1.1-4.8); LYMPHOCYTES % (AUTO) 15.8 % (21-51); MEAN CORPUSCULAR HEMOGLOBIN 30.9 PG (27.0-31.0); MEAN CORPUSCULAR HGB CONC 33.5 g/dL (33.0-36.5); MEAN CORPUSCULAR VOLUME 92.3 FL (78-98); MEAN PLATELET VOLUME 8.3 FL (7.4-10.4); MONOCYTES # (AUTO) 0.9 X10'3 (0-0.9); MONOCYTES % (AUTO) 8.7 % (2-12); NEUTROPHILS # (AUTO) 7.6 X10'3 (1.8-7.7); NEUTROPHILS % (AUTO) 74.4 % (42-75); PLATELET COUNT 226 X10'3 (140-440); RED BLOOD COUNT 3.68 X10'6 (4.20-5.60); RED CELL DISTRIBUTION WIDTH 14.9 % (11.5-14.5); WHITE BLOOD COUNT 10.2 X10'3 (4.5-11.0)
[2018-11-02 06:17] LABS: ALBUMIN 3.2 G/DL (3.4-5.0); ANION GAP 8 (8-16); BLOOD UREA NITROGEN 33 MG/DL (7-18); CALCIUM 8.7 MG/DL (8.5-10.1); CHLORIDE 109 MMOL/L (99-107); CREATININE 1.27 MG/DL (0.40-0.90); GLUCOSE 190 MG/DL (70-104); MAGNESIUM 2.1 MG/DL (1.5-2.4); SODIUM 140 MMOL/L (135-145); TOTAL CARBON DIOXIDE 23.3 MMOL/L (24-32); eGFR 40 ML/MIN
[2018-11-02] MEDS: docusate sod 100mg capsule PO SCH ×2 (08:00→20:28)
[2018-11-02] MEDS: K and/or MAG REPLACEMENT MC SCH (08:00)
[2018-11-02] MEDS ORDERED: ringers solution, lacted 1,000 ML IV ONE (08:44)
[2018-11-02] MEDS ORDERED: zolpidem 5mg tablet PO PRN (11:10)
[2018-11-02] MEDS ORDERED: ALPRAZolam 0.25mg tablet PO PRN (11:10)
[2018-11-02] MEDS ORDERED: butalbital/acetaminophen/caffeine (Fioricet) tablet PO PRN (11:10)
[2018-11-02] MEDS: digoxin 125mcg (0.125mg) tablet PO SCH (11:22)
[2018-11-02] MEDS: levoTHYROXINE 112mcg tablet PO SCH (11:22)
[2018-11-02] MEDS: isosorbide dinitrate 30mg tablet PO SCH (11:23)
[2018-11-02] MEDS: aspirin 325mg tablet PO SCH (11:24)
[2018-11-02] MEDS: fenofibrate 145mg tablet PO SCH (11:27)
[2018-11-02] MEDS: furosemide 20MG tablet PO SCH (12:07)
[2018-11-02] MEDS: lisinopril 5mg tablet PO SCH (12:07)
--- NOTE | 2018-11-02 14:00 | NUR ---
Joint consult: Pt BMI low 16.5 s/p fall w/ L hip fracture to OR today for repair. Hx dementia so not appropriate for DM ed at this time. Pt low wt stable likely at home from prior admits. Will benefit from ensure enlive TIDWM once PO post-op. Will continue to monitor. Addendum: 11/02/18 at [address] Amended: Links added.
[2018-11-02] MEDS ORDERED: etomidate 2mg/ml inj. ONE (14:21)
[2018-11-02] MEDS ORDERED: morphine 10mg/ml inj. ONE (14:21)
[2018-11-02] MEDS ORDERED: ringers solution, lacted 1,000 ML IV SCH (14:24)
[2018-11-02] MEDS ORDERED: hydrALAZINE 20mg/ml inj. IV PRN (14:25)
[2018-11-02] MEDS ORDERED: enalaprilat dihydrate 2.5mg/2ml vial IV PRN (14:25)
[2018-11-02] MEDS ORDERED: morphine 4 MG/ML inj SYRINge IV PRN ×2 (14:25)
[2018-11-02] MEDS ORDERED: fentaNYL/PF 50MCG/1 ML 2ML syringe IV PRN (14:25)
[2018-11-02] MEDS ORDERED: ondansetron/PF 4mg/2ml inj IV PRN (14:25)
[2018-11-02] MEDS ORDERED: ceFAZolin 1000mg inj ONE (14:38)
--- NOTE | 2018-11-02 15:15 | NUR ---
Received from OR via bed, accompanied by Anesthesiologist. Report received. Initial physical assessment done and recorded.
[2018-11-02] MEDS: fentaNYL/PF 50MCG/1 ML 2ML syringe IV PRN ×2 (15:58→16:08)
[2018-11-02] MEDS ORDERED: ceFAZolin 1GM/D5W- ADD-VANTAGE 50 ML IV ONE (16:00)
[2018-11-02] MEDS ORDERED: vancomycin/NS 1 GM ADD-VANTAGE 250 ML IV ONE (16:00)
--- NOTE | 2018-11-02 17:00 | NUR ---
Discharge criteria met, report to receiving floor. Transferred to room in stable condition.
--- NOTE | 2018-11-02 18:30 | NUR ---
Patient in room ORTHO 4006. I have received report from Belkis WONG and had the opportunity to ask questions and assume patient care.
[2018-11-02] MEDS: morphine 2 MG/ML inj. syringe IV PRN (20:22)
[2018-11-02] MEDS: carVEDilol 3.125mg tablet PO SCH (20:28)
[2018-11-02] MEDS: lactobacillus rhamnosus 10,000 MMU CELLS/CAPSULE PO SCH (20:28)
[2018-11-02] MEDS: atorvastatin 20mg tablet PO SCH (20:29)
[2018-11-02] MEDS: omega-3 acid ethyl esters 1GM capsule PO SCH (20:29)
[2018-11-02] MEDS: insulin glargine (Lantus) pen - multi-dose SQ SCH (21:00)
[2018-11-03] MEDS ORDERED: ceFAZolin 1GM/D5W- ADD-VANTAGE 50 ML IV SCH
[2018-11-03] MEDS: morphine 2 MG/ML inj. syringe IV PRN ×2 (00:29→15:31)
[2018-11-03] MEDS: HYDROcodone/acetaminophen 10/325mg tab PO PRN ×4 (01:57→19:00)
[2018-11-03 02:05] VITALS: BP 145/39
[2018-11-03 05:00] VITALS: BP 130/37
[2018-11-03 05:23] LABS: BASOPHILS # (AUTO) 0.1 X10'3 (0-0.2); BASOPHILS % (AUTO) 0.9 % (0-1); EOSINOPHILS # (AUTO) 0.2 X10'3 (0-0.9); EOSINOPHILS % (AUTO) 1.9 % (0-6); HEMATOCRIT 25.9 % (35.0-45.0); HEMOGLOBIN 8.8 g/dl (12.0-16.0); LYMPHOCYTES # (AUTO) 2.2 X10'3 (1.1-4.8); LYMPHOCYTES % (AUTO) 24.3 % (21-51); MEAN CORPUSCULAR HGB CONC 33.7 g/dL (33.0-36.5); MEAN PLATELET VOLUME 8.2 FL (7.4-10.4); MONOCYTES # (AUTO) 1.1 X10'3 (0-0.9); MONOCYTES % (AUTO) 12.4 % (2-12); NEUTROPHILS # (AUTO) 5.5 X10'3 (1.8-7.7); NEUTROPHILS % (AUTO) 60.5 % (42-75); PLATELET COUNT 176 X10'3 (140-440); RED BLOOD COUNT 2.82 X10'6 (4.20-5.60); WHITE BLOOD COUNT 9.2 X10'3 (4.5-11.0)
[2018-11-03 05:57] LABS: ALBUMIN 2.8 G/DL (3.4-5.0); ANION GAP 11 (8-16); BLOOD UREA NITROGEN 25 MG/DL (7-18); BUN/CREATININE RATIO 20.5 (6.6-38.0); CALCIUM 8.3 MG/DL (8.5-10.1); CHLORIDE 108 MMOL/L (99-107); CREATININE 1.22 MG/DL (0.40-0.90); GLUCOSE 127 MG/DL (70-104); MAGNESIUM 1.9 MG/DL (1.5-2.4); SODIUM 141 MMOL/L (135-145); TOTAL CARBON DIOXIDE 21.9 MMOL/L (24-32); eGFR 42 ML/MIN
--- NOTE | 2018-11-03 06:34 | NUR ---
Problems reprioritized. Patient report given, questions answered & plan of care reviewed with Ana WONG.
[2018-11-03] MEDS: K and/or MAG REPLACEMENT MC SCH (06:58)
[2018-11-03] MEDS: aspirin 325mg tablet PO SCH (07:38)
[2018-11-03] MEDS: levoTHYROXINE 112mcg tablet PO SCH (07:39)
[2018-11-03] MEDS: carVEDilol 3.125mg tablet PO SCH ×2 (07:39→20:40)
[2018-11-03] MEDS: fenofibrate 145mg tablet PO SCH (07:39)
[2018-11-03] MEDS: lactobacillus rhamnosus 10,000 MMU CELLS/CAPSULE PO SCH ×2 (07:39→20:39)
[2018-11-03] MEDS: lisinopril 5mg tablet PO SCH (07:39)
[2018-11-03] MEDS: omega-3 acid ethyl esters 1GM capsule PO SCH ×2 (07:39→20:39)
[2018-11-03] MEDS: furosemide 20MG tablet PO SCH (07:39)
[2018-11-03] MEDS: docusate sod 100mg capsule PO SCH ×2 (07:39→20:39)
[2018-11-03] MEDS: isosorbide dinitrate 30mg tablet PO SCH (07:39)
[2018-11-03] MEDS: digoxin 125mcg (0.125mg) tablet PO SCH (07:44)
[2018-11-03] MEDS: ceFAZolin 1GM/D5W- ADD-VANTAGE 50 ML IV SCH ×2 (07:44→16:00)
[2018-11-03 10:00] VITALS: BP 117/34
[2018-11-03 14:00] VITALS: BP 133/45
[2018-11-03 18:00] VITALS: BP 160/47
--- NOTE | 2018-11-03 18:22 | NUR ---
Problems reprioritized. Patient report given, questions answered & plan of care reviewed with Lara WONG.
--- NOTE | 2018-11-03 18:27 | NUR ---
Patient in room ORTHO 4006. I have received report from Ana WONG and had the opportunity to ask questions and assume patient care.
[2018-11-03] MEDS: potassium cl 20mEq in 1/2 NS 1,000 ML IV SCH (18:59)
[2018-11-03] MEDS: atorvastatin 20mg tablet PO SCH (20:40)
[2018-11-03] MEDS: insulin glargine (Lantus) pen - multi-dose SQ SCH (20:56)
[2018-11-03 22:00] VITALS: BP 147/45
[2018-11-04] MEDS: HYDROcodone/acetaminophen 10/325mg tab PO PRN ×4 (00:10→14:44)
[2018-11-04 05:00] VITALS: BP 142/42
--- NOTE | 2018-11-04 06:17 | NUR ---
Problems reprioritized. Patient report given, questions answered & plan of care reviewed with Ana WONG.
[2018-11-04 06:45] LABS: BASOPHILS % (AUTO) 0.6 % (0-1); EOSINOPHILS # (AUTO) 0.1 X10'3 (0-0.9); HEMOGLOBIN 7.1 g/dl (12.0-16.0); LYMPHOCYTES # (AUTO) 1.4 X10'3 (1.1-4.8); LYMPHOCYTES % (AUTO) 16.2 % (21-51); MEAN CORPUSCULAR HEMOGLOBIN 30.9 PG (27.0-31.0); MEAN CORPUSCULAR HGB CONC 33.2 g/dL (33.0-36.5); MEAN CORPUSCULAR VOLUME 93.1 FL (78-98); MEAN PLATELET VOLUME 8.4 FL (7.4-10.4); MONOCYTES # (AUTO) 0.9 X10'3 (0-0.9); MONOCYTES % (AUTO) 10.5 % (2-12); NEUTROPHILS # (AUTO) 6.1 X10'3 (1.8-7.7); NEUTROPHILS % (AUTO) 71.7 % (42-75); PLATELET COUNT 155 X10'3 (140-440); RED BLOOD COUNT 2.31 X10'6 (4.20-5.60); RED CELL DISTRIBUTION WIDTH 15.1 % (11.5-14.5); WHITE BLOOD COUNT 8.5 X10'3 (4.5-11.0)
[2018-11-04 06:53] LABS: ALBUMIN 2.6 G/DL (3.4-5.0); ANION GAP 8 (8-16); BLOOD UREA NITROGEN 24 MG/DL (7-18); BUN/CREATININE RATIO 23.1 (6.6-38.0); CALCIUM 8.3 MG/DL (8.5-10.1); CHLORIDE 107 MMOL/L (99-107); CREATININE 1.04 MG/DL (0.40-0.90); GLUCOSE 129 MG/DL (70-104); MAGNESIUM 2.1 MG/DL (1.5-2.4); POTASSIUM 4.2 MMOL/L (3.5-5.1); SODIUM 138 MMOL/L (135-145); TOTAL CARBON DIOXIDE 22.8 MMOL/L (24-32); eGFR 51 ML/MIN
[2018-11-04 06:56] LABS: HEMATOCRIT 21.5 % (35.0-45.0)
[2018-11-04] MEDS: K and/or MAG REPLACEMENT MC SCH (07:13)
--- NOTE | 2018-11-04 07:29 | NUR ---
Received critical value, Adriana BLAKELY notified.
[2018-11-04 09:07] LABS: HEMOGLOBIN 7.7 g/dl (12.0-16.0); MEAN CORPUSCULAR HEMOGLOBIN 31.1 PG (27.0-31.0); MEAN CORPUSCULAR HGB CONC 33.4 g/dL (33.0-36.5); MEAN CORPUSCULAR VOLUME 93.1 FL (78-98); MEAN PLATELET VOLUME 7.8 FL (7.4-10.4); PLATELET COUNT 183 X10'3 (140-440); RED BLOOD COUNT 2.47 X10'6 (4.20-5.60); RED CELL DISTRIBUTION WIDTH 15.1 % (11.5-14.5); WHITE BLOOD COUNT 9.1 X10'3 (4.5-11.0)
[2018-11-04 10:00] VITALS: BP 149/46
[2018-11-04] MEDS: fenofibrate 145mg tablet PO SCH (10:06)
[2018-11-04] MEDS: levoTHYROXINE 112mcg tablet PO SCH (10:06)
[2018-11-04] MEDS: carVEDilol 3.125mg tablet PO SCH (10:06)
[2018-11-04] MEDS: isosorbide dinitrate 30mg tablet PO SCH (10:06)
[2018-11-04] MEDS: docusate sod 100mg capsule PO SCH (10:07)
[2018-11-04] MEDS: aspirin 325mg tablet PO SCH (10:08)
[2018-11-04] MEDS: lactobacillus rhamnosus 10,000 MMU CELLS/CAPSULE PO SCH (10:08)
[2018-11-04] MEDS: furosemide 20MG tablet PO SCH (10:08)
[2018-11-04] MEDS: omega-3 acid ethyl esters 1GM capsule PO SCH (10:17)
[2018-11-04] MEDS: lisinopril 5mg tablet PO SCH (10:17)
[2018-11-04] MEDS: digoxin 125mcg (0.125mg) tablet PO SCH (10:20)
== END 2018-11-04 15:15 | DRG 480 ==
LOC: ER 21:16 → ORTHO 4S 23:37
PROVIDERS: ADMIT Internal Medicine; ATTEND Family Medicine
PROC: 0QS736Z Reposition Left Upper Femur with Intramedullary Internal Fixation Device, Percutaneous Approach (ICD-10-PCS; principal; 2018-11-02 14:24)
DX: S72.142A Displaced intertrochanteric fracture of left femur, initial encounter for closed fracture (principal); N17.0 Acute kidney failure with tubular necrosis; I13.0 Hypertensive heart and chronic kidney disease with heart failure and stage 1 through stage 4 chronic kidney disease, or unspecified chronic kidney disease; R55 Syncope and collapse; S00.93XA Contusion of unspecified part of head, initial encounter; E11.22 Type 2 diabetes mellitus with diabetic chronic kidney disease; W18.39XA Other fall on same level, initial encounter; Y93.01 Activity, walking, marching and hiking; H91.93 Unspecified hearing loss, bilateral; I25.10 Atherosclerotic heart disease of native coronary artery without angina pectoris; N18.3 Chronic kidney disease, stage 3 (moderate); I50.9 Heart failure, unspecified; E86.0 Dehydration; Z66 Do not resuscitate; Z80.3 Family history of malignant neoplasm of breast; Z80.8 Family history of malignant neoplasm of other organs or systems; Z87.891 Personal history of nicotine dependence; Z95.0 Presence of cardiac pacemaker; Y92.098 Other place in other non-institutional residence as the place of occurrence of the external cause; Y99.8 Other external cause status; Z79.899 Other long term (current) drug therapy; Z79.4 Long term (current) use of insulin; Z79.82 Long term (current) use of aspirin; I25.2 Old myocardial infarction
CPT/HCPCS: 36415; 70450; 71045; 72170; 72192; 73502; 76000; 80048; 80053; 80162; 81001; 82948; 83036; 83735; 83880; 84443; 84484; 85025; 85027; 85610; 85730; 86885; 86900; 86901; 87081; 93005; 93306; 93880; 96361; 96374; 96376; 97110; 97116; 97162; 97530; 97535; 99285; A4618; A6222; A6455; A7000; C1713; G0378; J0690; J1815; J2270; J2405; J3010; J3370; J3480; J7120

== ENCOUNTER 2019-01-07 15:53 | Inpatient (IN) | payer MEDICARE, OTHER ==
[~2019-01-07] VITALS: Ht 167.6 cm; Wt 48.0 kg
[2019-01-07 16:35] LABS: BASOPHILS # (AUTO) 0.1 X10'3 (0-0.2); BASOPHILS % (AUTO) 1.2 % (0-1); EOSINOPHILS # (AUTO) 0.1 X10'3 (0-0.9); EOSINOPHILS % (AUTO) 0.8 % (0-6); HEMATOCRIT 37.5 % (35.0-45.0); HEMOGLOBIN 11.7 g/dl (12.0-16.0); LYMPHOCYTES # (AUTO) 1.5 X10'3 (1.1-4.8); LYMPHOCYTES % (AUTO) 21.4 % (21-51); MEAN CORPUSCULAR HEMOGLOBIN 25.6 PG (27.0-31.0); MEAN CORPUSCULAR HGB CONC 31.2 g/dL (33.0-36.5); MEAN CORPUSCULAR VOLUME 82.1 FL (78-98); MEAN PLATELET VOLUME 8.2 FL (7.4-10.4); MONOCYTES # (AUTO) 0.6 X10'3 (0-0.9); MONOCYTES % (AUTO) 8.2 % (2-12); NEUTROPHILS # (AUTO) 4.7 X10'3 (1.8-7.7); NEUTROPHILS % (AUTO) 68.4 % (42-75); PLATELET COUNT 169 X10'3 (140-440); RED BLOOD COUNT 4.57 X10'6 (4.20-5.60); RED CELL DISTRIBUTION WIDTH 20.8 % (11.5-14.5); WHITE BLOOD COUNT 6.9 X10'3 (4.5-11.0)
[2019-01-07 16:39] LABS: ALANINE AMINOTRANSFERASE 143 U/L (12-78); ALBUMIN 3.1 G/DL (3.4-5.0); ALBUMIN/GLOBULIN RATIO 0.8 (1.1-1.5); ALKALINE PHOSPHATASE 142 IU/L (46-116); ANION GAP 14 (8-16); ASPARTATE AMINO TRANSFERASE 198 U/L (10-37); BILIRUBIN,TOTAL 0.6 MG/DL (0.1-1.0); BLOOD UREA NITROGEN 21 MG/DL (7-18); BUN/CREATININE RATIO 23.6 (6.6-38.0); CALCIUM 8.6 MG/DL (8.5-10.1); CHLORIDE 108 MMOL/L (99-107); CREATININE 0.89 MG/DL (0.40-0.90); GLUCOSE 96 MG/DL (70-104); POTASSIUM 3.2 MMOL/L (3.5-5.1); SODIUM 142 MMOL/L (135-145); TOTAL PROTEIN 6.8 G/DL (6.4-8.2); eGFR 61 ML/MIN
[2019-01-07 16:46] LABS: PLATELET ESTIMATE NORMAL
[2019-01-07 16:47] LABS: ACANTHOCYTES 1+; ANISOCYTOSIS 3+; POLYCHROMASIA FEW; SCHISTOCYTES FEW
--- NOTE | 2019-01-07 18:03 | NUR ---
straight cath done clear yellow urine, pt crystal well
[2019-01-07 18:04] LABS: CLARITY,URINE CLEAR (Clear); COLOR,URINE YELLOW (Yellow); GLUCOSE, URINE NEGATIVE (Neg); KETONES,URINE 15 mg/dl (Neg); LEUKOCYTE ESTERASE ,URINE NEGATIVE (Neg); NITRITES, URINE NEGATIVE (Neg); OCCULT BLOOD,URINE NEGATIVE (Neg); PROTEIN,URINE 100 mg/dl (Neg); UROBILINOGEN,URINE 0.2 E.U/dL (0.2-1.0)
[2019-01-07 18:07] LABS: UA COLLECTION TYPE STRAIGHT CATH
[2019-01-07 18:20] LABS: SQUAMOUS EPITHELIAL CELL,UR NONE SEEN /LPF (FEW)
[2019-01-07 18:21] LABS: BACTERIA,URINE FEW /HPF (Neg); RBC,URINE NONE SEEN /HPF (0-2); WBC,URINE 0-4 /HPF (0-4)
[2019-01-07] MEDS ORDERED: furosemide 10 MG/1 ML 10ml inj IV ONE (18:25)
[2019-01-07] MEDS ORDERED: potassium chloride 10mEq CAPSULE.SA PO STA (18:58)
[2019-01-07] MEDS ORDERED: potassium chloride 10mEq ER tablet PO STA (19:16)
--- NOTE | 2019-01-07 19:28 | NUR ---
DISCUSSED FC WITH CHIKA ROGEL; OK TO PLACE TO MONITOR I&Os.
--- NOTE | 2019-01-07 19:32 | NUR ---
HOSPITALIST MARE IN TO ASSESS PT FOR POSSIBLE ADMISSION JUST FC WAS ABOUT TO BE PLACED. HE CANCELLED FC PLACEMENT. COMPLETE LINEN CHANGE AND SHAHID CARE PROVIDED PT.
[2019-01-07] MEDS ORDERED: potassium Cl 20 mEq SR tablet PO PRN (19:50)
[2019-01-07] MEDS ORDERED: dextrose 50%-water 50ml dispensing syringe IV PRN ×2 (19:50)
[2019-01-07] MEDS ORDERED: magnesium hydroxide 30ml (MOM) UD suspension PO PRN (19:50)
[2019-01-07] MEDS ORDERED: ondansetron/PF 4mg/2ml inj IV PRN (19:50)
[2019-01-07] MEDS ORDERED: acetaminophen 325mg tablet PO PRN ×2 (19:50)
[2019-01-07] MEDS ORDERED: mag hydrox/Alum hydrox/simeth 30ml oral suspension PO PRN (19:50)
[2019-01-07] MEDS ORDERED: insulin Lispro (HumaLOG) vial - multi-dose SQ SCH (19:50)
[2019-01-07] MEDS ORDERED: MESSAGE TO PHARMACY PO ONE (19:50)
[2019-01-07] MEDS ORDERED: glucagon, human recombinant 1mg kit SUBCUT PRN (19:50)
[2019-01-07] MEDS ORDERED: potassium CL 10mEq/100ml bag 100 ML IV PRN ×2 (19:50)
[2019-01-07] MEDS ORDERED: dextrose ORAL solution 15 GM/59 ML bottle PO PRN ×2 (19:50)
[2019-01-07 20:27] LABS: HEMOGLOBIN A1C 5.7 % (4.5-6.2)
[2019-01-07] MEDS: carVEDilol 3.125mg tablet PO SCH (20:53)
--- NOTE | 2019-01-07 20:55 | NUR ---
PERICARE & DEPENDS CHANGED
--- NOTE | 2019-01-07 20:59 | NUR ---
Report called to floor, but room is not yet cleaned. Pt can be transported in 20 min.
[2019-01-07] MEDS: insulin glargine (Lantus) pen - multi-dose SQ SCH (21:00)
[2019-01-07] MEDS ORDERED: insulin glargine (Lantus) pen - multi-dose SQ SCH (21:00)
[2019-01-07] MEDS ORDERED: atorvastatin 20mg tablet PO SCH (21:00)
--- NOTE | 2019-01-07 21:12 | NUR ---
spoke w/ banana expert of patient who said pt fell and hit her head approx 2 days ago. Pt was examined by Dr. Horn who felt pt did not suffer serious injury.
--- NOTE | 2019-01-07 21:19 | NUR ---
MD Suárez notified of fall and head injury. Pt has no c/o of head pain and is A/O X4
[2019-01-07 21:30] VITALS: BP 140/71
[2019-01-07] MEDS: omega-3 acid ethyl esters 1GM capsule PO SCH (21:49)
[2019-01-07] MEDS: zolpidem 5mg tablet PO PRN (23:14)
[2019-01-08] VITALS: BP 126/60
[2019-01-08] MEDS: potassium Cl 20 mEq SR tablet PO PRN ×2 (02:23→08:54)
[2019-01-08 04:08] LABS: ALANINE AMINOTRANSFERASE 122 U/L (12-78); ALBUMIN/GLOBULIN RATIO 0.8 (1.1-1.5); ALKALINE PHOSPHATASE 136 IU/L (46-116); ANION GAP 13 (8-16); ASPARTATE AMINO TRANSFERASE 150 U/L (10-37); BILIRUBIN,TOTAL 0.5 MG/DL (0.1-1.0); BLOOD UREA NITROGEN 20 MG/DL (7-18); BUN/CREATININE RATIO 20.8 (6.6-38.0); CALCIUM 8.6 MG/DL (8.5-10.1); CHLORIDE 109 MMOL/L (99-107); CREATININE 0.96 MG/DL (0.40-0.90); GLUCOSE 91 MG/DL (70-104); POTASSIUM 3.6 MMOL/L (3.5-5.1); SODIUM 145 MMOL/L (135-145); TOTAL CARBON DIOXIDE 23.5 MMOL/L (24-32); TOTAL PROTEIN 6.7 G/DL (6.4-8.2); eGFR 56 ML/MIN
[2019-01-08 04:22] LABS: BASOPHILS % (AUTO) 0.6 % (0-1); EOSINOPHILS # (AUTO) 0.1 X10'3 (0-0.9); EOSINOPHILS % (AUTO) 1.2 % (0-6); HEMATOCRIT 37.7 % (35.0-45.0); HEMOGLOBIN 11.7 g/dl (12.0-16.0); LYMPHOCYTES # (AUTO) 1.5 X10'3 (1.1-4.8); LYMPHOCYTES % (AUTO) 26.8 % (21-51); MEAN CORPUSCULAR HEMOGLOBIN 25.3 PG (27.0-31.0); MEAN CORPUSCULAR HGB CONC 30.9 g/dL (33.0-36.5); MEAN CORPUSCULAR VOLUME 81.9 FL (78-98); MEAN PLATELET VOLUME 8.2 FL (7.4-10.4); MONOCYTES # (AUTO) 0.5 X10'3 (0-0.9); MONOCYTES % (AUTO) 9.1 % (2-12); NEUTROPHILS # (AUTO) 3.4 X10'3 (1.8-7.7); NEUTROPHILS % (AUTO) 62.3 % (42-75); PLATELET COUNT 154 X10'3 (140-440); RED CELL DISTRIBUTION WIDTH 20.8 % (11.5-14.5); WHITE BLOOD COUNT 5.4 X10'3 (4.5-11.0)
[2019-01-08 07:00] VITALS: BP 137/71
[2019-01-08 07:20] LABS: ANISOCYTOSIS 3+; HYPOCHROMASIA 1+; MICROCYTOSIS 1+; PLATELET ESTIMATE NORMAL
[2019-01-08 07:21] LABS: POLYCHROMASIA FEW; SCHISTOCYTES FEW; TARGET CELLS 1+
[2019-01-08] MEDS: NUT.TX.GLUC.INTOLER,LAC-FR,SOY (GLUCERNA) 237 ML PO SCH (08:00)
[2019-01-08] MEDS ORDERED: furosemide 40mg/4ml inj IV SCH (08:00)
[2019-01-08] MEDS ORDERED: fenofibrate 145mg tablet PO SCH (08:30)
[2019-01-08] MEDS: levoTHYROXINE 112mcg tablet PO SCH (08:50)
[2019-01-08] MEDS: omega-3 acid ethyl esters 1GM capsule PO SCH ×2 (08:50→19:58)
[2019-01-08] MEDS: digoxin 125mcg (0.125mg) tablet PO SCH (08:50)
[2019-01-08] MEDS: lisinopril 5mg tablet PO SCH (08:51)
[2019-01-08] MEDS: carVEDilol 3.125mg tablet PO SCH ×2 (08:51→19:58)
[2019-01-08] MEDS: aspirin 325mg tablet PO SCH (08:51)
[2019-01-08] MEDS: enoxaparin 40mg/0.4ml syringe SUBCUT SCH (08:52)
[2019-01-08] MEDS: K and/or MAG REPLACEMENT MC SCH (08:54)
--- NOTE | 2019-01-08 09:20 | NUR ---
PAGER ID: [phone] MESSAGE: VINICIUS AKINS 360A PT. NOT HAVING OUTPUT IN FIERRO. LASIX 40MG IV BID ORDERED. LABS SHOW SOME POOR KIDNEY FUNCTION/ DEHYDRATION. PT. SALINE LOCKED. HOLD LASIX? WASHINGTON 2991
--- NOTE | 2019-01-08 09:26 | NUR ---
REPLIED BACK, REQUESTING F/C BE FLUSHED AND PT BLADDER SCANNED. THIS WAS COMPLETED BLADDER SCANNED 39ML.
--- NOTE | 2019-01-08 11:24 | NUR ---
PAGER ID: [phone] MESSAGE: 360A VINICIUS AKINS 60ML OUTPUT IN F/C. >30ML IN BLADDER WHEN SCANNED. FC FLUSSHED. GIVE OR HOLD LASIX? WASHINGTON [id number]
[2019-01-08] MEDS: isosorbide dinitrate 30mg tablet PO SCH (11:38)
[2019-01-08 12:00] VITALS: BP 111/47
--- NOTE | 2019-01-08 13:30 | NUR ---
Malnutrition consult: Pt seen at bedside reports low appetite for a couple of weeks and states she has lost about 10 lbs in that time. Pt reports unknown UBW however per RD documentation of discussion with pt at previous visit, pt reports UBW of 110 lbs. Pt currently 86% reported UBW. No reliable wt hx to determine if pt truly lost wt. Pt currently on CHO controlled diet documented with 25% PO intake of starch only and 100% PO intake of milk at breakfast. Pt currently with low BMI of 15.4 with visible fat and muscle wasting, BLE 3+ mod edema, and with severe weakness, pt currently meets criteria for malnutrition, MD notified. Pt agrees to Nhan BEE d/w who agrees. ONS to be sent pending MD verification in [employer]. Pt provided with malnutrition education with recommendations for ONS continuation following discharge, ONS coupons, and RD contact information. Pt denies any food allergies, difficulty chewing/swallowing, or constipation. LBM 8/9. Will continue to follow. Recommendations: 1) Consider diet advancement to regular to provide additional food options and optimize PO intake 2) Glucerna TID, to be sent pending MD verification in [employer] 3) Encourage PO intake 4) Wt per rx Addendum: 01/08/19 at [address] Amended: Links added.
[2019-01-08] MEDS ORDERED: sodium chloride 0.45% 1,000 ML IV SCH (14:10)
--- NOTE | 2019-01-08 15:00 | NUR ---
PHYSICAL THERAPY REPORT BP OF 93/30. RETAKEN ON AUTOMATIC MACHINE WITH REGULAR SIZED ADULT CUFF. 104/29. PT ARMS ARE VERY SMALL. PEDIATRIC SIZED AUTOMATIC BP CUFF USED. A MORE ACCURATE 95/54 BP WAS TAKEN. NO JAMAL CUFF FOUND IN THE FACILITY TO TAKE A JAMAL BP ON THIS PT. MD LITTLE AWARE OF BP AND SITUATION. NO NEW ORDERS AT THIS TIME.
[2019-01-08 15:25] VITALS: BP 95/48
--- NOTE | 2019-01-08 17:44 | NUR ---
PAGER ID: [phone] MESSAGE: VINICIUS AKINS 360A REASSESSED F/C OUTPUT. 175ML OUTPUT FOR LAST 12 HOURS. [facility]
[2019-01-08 18:00] VITALS: BP_SYST 107; BP_SYST 115; BP_DIAS 50; BP_DIAS 52
--- NOTE | 2019-01-08 18:30 | NUR ---
Patient in room [facility] 360. I have received report from Kayla WONG and had the opportunity to ask questions and assume patient care.
--- NOTE | 2019-01-08 18:53 | NUR ---
MD Cheek replied to page. No new orders. Will cont. to monitor ON MY SHIFT AND PASS THIS INFO ON IN REPORT.
--- NOTE | 2019-01-08 19:01 | NUR ---
REPORT GIVEN TO ZEE WONG.
[2019-01-08] MEDS: zolpidem 5mg tablet PO PRN (20:56)
[2019-01-08] MEDS: insulin glargine (Lantus) pen - multi-dose SQ SCH (21:00)
[2019-01-09] VITALS: BP 115/52
--- NOTE | 2019-01-09 02:20 | NUR ---
Lukasz MOYER notified of pt 15 ml urine output from 0000 to 0220. Pt vitals WNL. Pt lungs sound clear throughout. Will continue to encourage PO intake and monitor output closely.
[2019-01-09 06:28] LABS: BASOPHILS # (AUTO) 0.1 X10'3 (0-0.2); BASOPHILS % (AUTO) 1.4 % (0-1); EOSINOPHILS # (AUTO) 0.1 X10'3 (0-0.9); EOSINOPHILS % (AUTO) 0.9 % (0-6); HEMATOCRIT 39.8 % (35.0-45.0); HEMOGLOBIN 12.5 g/dl (12.0-16.0); LYMPHOCYTES # (AUTO) 2.2 X10'3 (1.1-4.8); LYMPHOCYTES % (AUTO) 35.1 % (21-51); MEAN CORPUSCULAR HEMOGLOBIN 25.9 PG (27.0-31.0); MEAN CORPUSCULAR HGB CONC 31.5 g/dL (33.0-36.5); MEAN CORPUSCULAR VOLUME 82.1 FL (78-98); MEAN PLATELET VOLUME 8.4 FL (7.4-10.4); MONOCYTES # (AUTO) 0.6 X10'3 (0-0.9); MONOCYTES % (AUTO) 9.4 % (2-12); NEUTROPHILS # (AUTO) 3.3 X10'3 (1.8-7.7); NEUTROPHILS % (AUTO) 53.2 % (42-75); PLATELET COUNT 152 X10'3 (140-440); RED BLOOD COUNT 4.85 X10'6 (4.20-5.60); RED CELL DISTRIBUTION WIDTH 20.6 % (11.5-14.5); WHITE BLOOD COUNT 6.2 X10'3 (4.5-11.0)
[2019-01-09 06:45] LABS: ALANINE AMINOTRANSFERASE 98 U/L (12-78); ALBUMIN 3.1 G/DL (3.4-5.0); ALBUMIN/GLOBULIN RATIO 0.8 (1.1-1.5); ALKALINE PHOSPHATASE 153 IU/L (46-116); ANION GAP 12 (8-16); ASPARTATE AMINO TRANSFERASE 91 U/L (10-37); BILIRUBIN,TOTAL 0.6 MG/DL (0.1-1.0); BLOOD UREA NITROGEN 33 MG/DL (7-18); BUN/CREATININE RATIO 26.6 (6.6-38.0); CALCIUM 8.5 MG/DL (8.5-10.1); CHLORIDE 107 MMOL/L (99-107); CREATININE 1.24 MG/DL (0.40-0.90); GLUCOSE 123 MG/DL (70-104); POTASSIUM 5.2 MMOL/L (3.5-5.1); SODIUM 139 MMOL/L (135-145); TOTAL CARBON DIOXIDE 19.6 MMOL/L (24-32); eGFR 42 ML/MIN
[2019-01-09 07:00] VITALS: BP 134/81
--- NOTE | 2019-01-09 07:00 | NUR ---
Problems reprioritized. Patient report given, questions answered & plan of care reviewed with Kayla wood.
[2019-01-09] MEDS: NUT.TX.GLUC.INTOLER,LAC-FR,SOY (GLUCERNA) 237 ML PO SCH ×3 (08:00→18:34)
[2019-01-09] MEDS ORDERED: furosemide 20 MG/2 ML vial IV SCH (08:00)
[2019-01-09] MEDS: K and/or MAG REPLACEMENT MC SCH (08:00)
[2019-01-09] MEDS: levoTHYROXINE 112mcg tablet PO SCH (08:34)
[2019-01-09] MEDS: aspirin 325mg tablet PO SCH (08:34)
[2019-01-09] MEDS: digoxin 125mcg (0.125mg) tablet PO SCH (08:34)
[2019-01-09] MEDS: omega-3 acid ethyl esters 1GM capsule PO SCH ×2 (08:34→20:07)
[2019-01-09] MEDS: isosorbide dinitrate 30mg tablet PO SCH (08:35)
[2019-01-09] MEDS: carVEDilol 3.125mg tablet PO SCH ×2 (08:35→20:07)
[2019-01-09] MEDS: enoxaparin 40mg/0.4ml syringe SUBCUT SCH (08:35)
--- NOTE | 2019-01-09 08:46 | NUR ---
PAGER ID: [phone] MESSAGE: VINICIUS AKINS 360A AFTER ASSESSMENT PT. REQUESTED PAIN MEDICATION FOR BEFORE PHYSICAL THERAPY. WANTS SOMETHING STRONGER THAN TYELENOL. THANK YOU. WASHINGTON 5320
[2019-01-09 09:00] LABS: ANISOCYTOSIS 3+; ELLIPTOCYTES FEW; MICROCYTOSIS 1+; PLATELET ESTIMATE NORMAL; TEAR DROP CELLS FEW
[2019-01-09 11:00] VITALS: BP 112/54
[2019-01-09] MEDS: lisinopril 5mg tablet PO SCH (11:22)
--- NOTE | 2019-01-09 12:06 | NUR ---
aware of pt's positive MRSA swab. Pt. provided with MRSA education.
--- NOTE | 2019-01-09 12:07 | NUR ---
pt. stated that although not in pain during this AM assessment it benefits her to have pain medication before physical therapy. MD made aware that pt. has no pain medication ordered. See new orders.
[2019-01-09 14:22] LABS: ALBUMIN 2.9 G/DL (3.4-5.0); ANION GAP 13 (8-16); BLOOD UREA NITROGEN 37 MG/DL (7-18); BUN/CREATININE RATIO 30.3 (6.6-38.0); CALCIUM 8.4 MG/DL (8.5-10.1); CHLORIDE 107 MMOL/L (99-107); CREATININE 1.22 MG/DL (0.40-0.90); GLUCOSE 111 MG/DL (70-104); POTASSIUM 4.8 MMOL/L (3.5-5.1); SODIUM 140 MMOL/L (135-145); TOTAL CARBON DIOXIDE 19.7 MMOL/L (24-32); eGFR 42 ML/MIN
--- NOTE | 2019-01-09 14:58 | NUR ---
PT'S F/C REMOVED. PT TOLERATED REMOVAL WELL. BLADDER SCANNED ONE HOUR LATER 111ML IN BLADDER.
--- NOTE | 2019-01-09 17:00 | NUR ---
PT. BLADDER SCANNED. 187 ML IN BLADDER. MD AWARE PT. HAS NOT VOIDED SINCE F/C REMOVED. SEE NEW ORDERS.
--- NOTE | 2019-01-09 18:15 | NUR ---
Patient in room [facility] 360. I have received report from Kayla WONG and had the opportunity to ask questions and assume patient care.
--- NOTE | 2019-01-09 19:14 | NUR ---
GAVE REPORT TO NOHEMY WONG. HE IS AWARE PT. HAS NOT VOIDED SINCE F/C HAS BEEN REMOVED. ALSO PASSED ON STRAIGHT CATH ORDERS. PT. IN BED COMFORTABLE, EATING DINNER.
[2019-01-09 20:00] VITALS: BP 128/65
[2019-01-09] MEDS: furosemide 20MG tablet PO SCH (20:07)
[2019-01-09] MEDS: insulin glargine (Lantus) pen - multi-dose SQ SCH (21:00)
[2019-01-09] MEDS: HYDROcodone/acetaminophen 5mg/325mg tablet PO PRN (21:09)
--- NOTE | 2019-01-09 23:40 | NUR ---
Patient stated that she did not have to pee. Upon bladder scan attempt, patient was heavily incontinent of urine before scan finished; stated "it just started coming." Will encourage BSC/bedpan use.
[2019-01-10] VITALS: BP 117/75
[2019-01-10 06:31] LABS: BASOPHILS % (AUTO) 0.8 % (0-1); EOSINOPHILS # (AUTO) 0.1 X10'3 (0-0.9); EOSINOPHILS % (AUTO) 1.2 % (0-6); HEMATOCRIT 37.5 % (35.0-45.0); HEMOGLOBIN 11.9 g/dl (12.0-16.0); LYMPHOCYTES # (AUTO) 2.2 X10'3 (1.1-4.8); LYMPHOCYTES % (AUTO) 36.6 % (21-51); MEAN CORPUSCULAR HEMOGLOBIN 26.1 PG (27.0-31.0); MEAN CORPUSCULAR HGB CONC 31.8 g/dL (33.0-36.5); MEAN PLATELET VOLUME 8.8 FL (7.4-10.4); MONOCYTES # (AUTO) 0.6 X10'3 (0-0.9); MONOCYTES % (AUTO) 10.6 % (2-12); NEUTROPHILS % (AUTO) 50.8 % (42-75); PLATELET COUNT 137 X10'3 (140-440); RED BLOOD COUNT 4.56 X10'6 (4.20-5.60); RED CELL DISTRIBUTION WIDTH 21.2 % (11.5-14.5); WHITE BLOOD COUNT 5.9 X10'3 (4.5-11.0)
[2019-01-10 06:49] LABS: ALANINE AMINOTRANSFERASE 67 U/L (12-78); ALBUMIN 2.8 G/DL (3.4-5.0); ALBUMIN/GLOBULIN RATIO 0.8 (1.1-1.5); ALKALINE PHOSPHATASE 132 IU/L (46-116); ANION GAP 13 (8-16); ASPARTATE AMINO TRANSFERASE 47 U/L (10-37); BILIRUBIN,TOTAL 0.3 MG/DL (0.1-1.0); BLOOD UREA NITROGEN 43 MG/DL (7-18); BUN/CREATININE RATIO 36.4 (6.6-38.0); CALCIUM 8.5 MG/DL (8.5-10.1); CHLORIDE 107 MMOL/L (99-107); CREATININE 1.18 MG/DL (0.40-0.90); GLUCOSE 140 MG/DL (70-104); POTASSIUM 4.7 MMOL/L (3.5-5.1); SODIUM 140 MMOL/L (135-145); TOTAL PROTEIN 6.5 G/DL (6.4-8.2); eGFR 44 ML/MIN
--- NOTE | 2019-01-10 06:59 | NUR ---
Problems reprioritized. Patient report given, questions answered & plan of care reviewed with Kayla WONG.
[2019-01-10 08:00] VITALS: BP 131/57
[2019-01-10] MEDS: K and/or MAG REPLACEMENT MC SCH (08:00)
[2019-01-10] MEDS: aspirin 325mg tablet PO SCH (08:04)
[2019-01-10] MEDS: omega-3 acid ethyl esters 1GM capsule PO SCH ×2 (08:04→20:15)
[2019-01-10] MEDS: levoTHYROXINE 112mcg tablet PO SCH (08:04)
[2019-01-10] MEDS: digoxin 125mcg (0.125mg) tablet PO SCH (08:05)
[2019-01-10] MEDS: isosorbide dinitrate 30mg tablet PO SCH (08:05)
[2019-01-10] MEDS: furosemide 20MG tablet PO SCH ×2 (08:05→20:14)
[2019-01-10] MEDS: HYDROcodone/acetaminophen 5mg/325mg tablet PO PRN ×3 (08:06→20:14)
[2019-01-10] MEDS: carVEDilol 3.125mg tablet PO SCH ×2 (08:06→20:14)
[2019-01-10] MEDS: enoxaparin 30mg/0.3ml syringe SUBCUT SCH (08:07)
[2019-01-10] MEDS: NUT.TX.GLUC.INTOLER,LAC-FR,SOY (GLUCERNA) 237 ML PO SCH ×3 (08:09→18:42)
--- NOTE | 2019-01-10 09:03 | NUR ---
PAGER ID: [phone] MESSAGE: 360A Chary Lopez Tele just called. Pt. had a 13 beat run of v tach. Please call so I know you are aware. I have EKG strips for you to look at/sign. Kayla [phone]
[2019-01-10 09:51] LABS: POLYCHROMASIA FEW
[2019-01-10 09:52] LABS: ANISOCYTOSIS 3+; HYPOCHROMASIA 1+; PLATELET ESTIMATE NORMAL; POIKILOCYTOSIS FEW
[2019-01-10 09:53] LABS: LARGE PLATELETS FEW
--- NOTE | 2019-01-10 10:00 | NUR ---
called concerning 13 beat run of V-tach. Tele strips reviewed by . ordered pacemaker interrogation. Spoke with pt. concerning procedure. She said it was a good thing it was happening because her pacemaker was "due for a battery change". Vitals were taken and stable: BP 104/54 and HR 70. Pt. feels fatigued, but not much different from her usual state. Will cont. to monitor on my shift.
[2019-01-10] MEDS: lisinopril 5mg tablet PO SCH (11:03)
[2019-01-10 12:00] VITALS: BP 129/51
--- NOTE | 2019-01-10 16:31 | NUR ---
PAGER ID: [phone] MESSAGE: Chary Lopez 360A Pt. had pacer interrogated. Will write note regarding results. rachel wood [phone]
--- NOTE | 2019-01-10 16:37 | NUR ---
Pacemaker interrogation complete. Tech stated that pacer was working correctly. Patient is not pacer dependent and is currently at SR. Pacer can pace up 130 BPM which look like V-tach at times, however tech examined tele strips and said that the rate of beats was to fast to be the pacer kicking in. She also stated that the pt. had a similar episode on 01-07-19 that the pacer recorder. The pacer was only recording rate over 180 and this vtach was around 150 rate. the tech said she would change the pacer's setting to record these episodes at a rate of 150 or above. Pacer otherwise has normal function. Pt's pacer battery needs to be replaced in one month.
--- NOTE | 2019-01-10 16:43 | NUR ---
Pacer interrogation report placed in pt's hard chart.
--- NOTE | 2019-01-10 18:32 | NUR ---
Pt. up in chair eating dinner comfortably. Pt. states increased stress incontinence since F/C removed yesterday. Passed on to Rosmery dawson RN in report to monitor. Oncoming RN also aware of 13 beat run of V-tach today. Gave rest of report on pt. to Norma WONG.
--- NOTE | 2019-01-10 18:35 | NUR ---
Patient in room MANSO[facility] 360. I have received report from WASHINGTON WONG and had the opportunity to ask questions and assume patient care.
[2019-01-10 20:00] VITALS: BP 133/54
[2019-01-10] MEDS: insulin glargine (Lantus) pen - multi-dose SQ SCH (21:00)
[2019-01-11] VITALS: BP 105/51
[2019-01-11] MEDS: HYDROcodone/acetaminophen 5mg/325mg tablet PO PRN ×3 (04:04→18:29)
[2019-01-11 06:22] LABS: BASOPHILS # (AUTO) 0.1 X10'3 (0-0.2); BASOPHILS % (AUTO) 1.4 % (0-1); EOSINOPHILS # (AUTO) 0.1 X10'3 (0-0.9); EOSINOPHILS % (AUTO) 1.3 % (0-6); HEMATOCRIT 39.5 % (35.0-45.0); HEMOGLOBIN 12.5 g/dl (12.0-16.0); LYMPHOCYTES # (AUTO) 1.6 X10'3 (1.1-4.8); LYMPHOCYTES % (AUTO) 33.5 % (21-51); MEAN CORPUSCULAR HEMOGLOBIN 25.9 PG (27.0-31.0); MEAN CORPUSCULAR HGB CONC 31.7 g/dL (33.0-36.5); MEAN CORPUSCULAR VOLUME 81.8 FL (78-98); MEAN PLATELET VOLUME 8.8 FL (7.4-10.4); MONOCYTES # (AUTO) 0.6 X10'3 (0-0.9); MONOCYTES % (AUTO) 12.7 % (2-12); NEUTROPHILS # (AUTO) 2.4 X10'3 (1.8-7.7); NEUTROPHILS % (AUTO) 51.1 % (42-75); PLATELET COUNT 136 X10'3 (140-440); RED BLOOD COUNT 4.82 X10'6 (4.20-5.60); RED CELL DISTRIBUTION WIDTH 21.6 % (11.5-14.5); WHITE BLOOD COUNT 4.8 X10'3 (4.5-11.0)
--- NOTE | 2019-01-11 06:25 | NUR ---
Problems reprioritized. Patient report given, questions answered & plan of care reviewed with JERMAINE WONG.
[2019-01-11 06:34] LABS: ALANINE AMINOTRANSFERASE 61 U/L (12-78); ALBUMIN/GLOBULIN RATIO 0.8 (1.1-1.5); ALKALINE PHOSPHATASE 132 IU/L (46-116); ANION GAP 11 (8-16); ASPARTATE AMINO TRANSFERASE 35 U/L (10-37); BILIRUBIN,TOTAL 0.4 MG/DL (0.1-1.0); BLOOD UREA NITROGEN 46 MG/DL (7-18); BUN/CREATININE RATIO 40.7 (6.6-38.0); CALCIUM 8.7 MG/DL (8.5-10.1); CHLORIDE 107 MMOL/L (99-107); CREATININE 1.13 MG/DL (0.40-0.90); GLUCOSE 118 MG/DL (70-104); POTASSIUM 4.2 MMOL/L (3.5-5.1); SODIUM 141 MMOL/L (135-145); TOTAL CARBON DIOXIDE 22.7 MMOL/L (24-32); TOTAL PROTEIN 6.8 G/DL (6.4-8.2); eGFR 46 ML/MIN
[2019-01-11 07:20] VITALS: BP 134/62
[2019-01-11] MEDS: digoxin 125mcg (0.125mg) tablet PO SCH (07:47)
[2019-01-11] MEDS: furosemide 20MG tablet PO SCH ×2 (07:47→20:38)
[2019-01-11] MEDS: omega-3 acid ethyl esters 1GM capsule PO SCH ×2 (07:47→20:38)
[2019-01-11] MEDS: lisinopril 5mg tablet PO SCH (07:47)
[2019-01-11] MEDS: aspirin 325mg tablet PO SCH (07:48)
[2019-01-11] MEDS: enoxaparin 30mg/0.3ml syringe SUBCUT SCH (07:48)
[2019-01-11] MEDS: levoTHYROXINE 112mcg tablet PO SCH (07:48)
[2019-01-11] MEDS: carVEDilol 3.125mg tablet PO SCH ×2 (07:48→20:38)
[2019-01-11] MEDS: isosorbide dinitrate 30mg tablet PO SCH (07:48)
[2019-01-11] MEDS: NUT.TX.GLUC.INTOLER,LAC-FR,SOY (GLUCERNA) 237 ML PO SCH ×3 (07:51→18:06)
[2019-01-11] MEDS: K and/or MAG REPLACEMENT MC SCH (07:52)
--- NOTE | 2019-01-11 09:10 | NUR ---
Diabetes survival skills given and reviewed with patient. All questions answered.
[2019-01-11 09:41] LABS: PLATELET ESTIMATE NORMAL
[2019-01-11 09:43] LABS: ANISOCYTOSIS 3+; POLYCHROMASIA FEW
[2019-01-11 09:44] LABS: BURR CELLS 1+; ELLIPTOCYTES FEW; HYPOCHROMASIA 1+; POIKILOCYTOSIS 2+
--- NOTE | 2019-01-11 11:50 | NUR ---
[facility] downtime [id number] please refer to paper charting.
[2019-01-11 11:53] VITALS: BP 114/43
--- NOTE | 2019-01-11 12:30 | NUR ---
Reassessment: Breathing is improved and patient was about to be d/c'ed however was withheld d/t 13 beat run of Emma huizar per MD notes. Patient's PO intake seems to be improving 25-50% however with 100% starch/soup and 100% PO intake of milk this morning. Pt also with 100% PO intake of ONS, likely closely meeting nutrient needs with intake of meals and ONS. No documented wt loss this visit. LB 01/09. Will continue to follow. Recommendations: 1) Consider diet advancement to regular to provide additional food options and optimize PO intake 2) Glucerna TID 3) Encourage PO intake 4) Wt per rx Addendum: 01/11/19 at [address] Amended: Links added.
--- NOTE | 2019-01-11 18:24 | NUR ---
Problems reprioritized. Patient report given, questions answered & plan of care reviewed with Rosmery Botello RN.
--- NOTE | 2019-01-11 18:30 | NUR ---
Patient in room MANSO[facility] 360. I have received report from JERMAINE WONG and had the opportunity to ask questions and assume patient care.
[2019-01-11 20:00] VITALS: BP 125/61
[2019-01-11] MEDS: insulin glargine (Lantus) pen - multi-dose SQ SCH (21:00)
[2019-01-11] MEDS: zolpidem 5mg tablet PO PRN (22:54)
[2019-01-12] VITALS: BP 131/52
[2019-01-12] MEDS: HYDROcodone/acetaminophen 5mg/325mg tablet PO PRN ×2 (05:28→13:43)
--- NOTE | 2019-01-12 06:30 | NUR ---
Problems reprioritized. Patient report given, questions answered & plan of care reviewed with JERMAINE WONG.
[2019-01-12 07:11] VITALS: BP 120/53
[2019-01-12] MEDS: K and/or MAG REPLACEMENT MC SCH (08:00)
[2019-01-12] MEDS: NUT.TX.GLUC.INTOLER,LAC-FR,SOY (GLUCERNA) 237 ML PO SCH ×2 (08:00→12:27)
[2019-01-12 09:02] LABS: BASOPHILS # (AUTO) 0.1 X10'3 (0-0.2); BASOPHILS % (AUTO) 1.8 % (0-1); EOSINOPHILS # (AUTO) 0.1 X10'3 (0-0.9); EOSINOPHILS % (AUTO) 1.3 % (0-6); HEMATOCRIT 35.4 % (35.0-45.0); HEMOGLOBIN 11.2 g/dl (12.0-16.0); LYMPHOCYTES # (AUTO) 1.8 X10'3 (1.1-4.8); LYMPHOCYTES % (AUTO) 36.7 % (21-51); MEAN CORPUSCULAR HEMOGLOBIN 25.5 PG (27.0-31.0); MEAN CORPUSCULAR HGB CONC 31.6 g/dL (33.0-36.5); MEAN CORPUSCULAR VOLUME 80.6 FL (78-98); MEAN PLATELET VOLUME 9.1 FL (7.4-10.4); MONOCYTES # (AUTO) 0.7 X10'3 (0-0.9); MONOCYTES % (AUTO) 13.8 % (2-12); NEUTROPHILS # (AUTO) 2.3 X10'3 (1.8-7.7); NEUTROPHILS % (AUTO) 46.4 % (42-75); PLATELET COUNT 155 X10'3 (140-440); RED CELL DISTRIBUTION WIDTH 21.5 % (11.5-14.5)
[2019-01-12] MEDS: omega-3 acid ethyl esters 1GM capsule PO SCH (09:04)
[2019-01-12] MEDS: furosemide 20MG tablet PO SCH (09:04)
[2019-01-12] MEDS: levoTHYROXINE 112mcg tablet PO SCH (09:04)
[2019-01-12] MEDS: aspirin 325mg tablet PO SCH (09:04)
[2019-01-12] MEDS: lisinopril 5mg tablet PO SCH (09:04)
[2019-01-12] MEDS: isosorbide dinitrate 30mg tablet PO SCH (09:04)
[2019-01-12] MEDS: digoxin 125mcg (0.125mg) tablet PO SCH (09:04)
[2019-01-12] MEDS: carVEDilol 3.125mg tablet PO SCH (09:04)
[2019-01-12] MEDS: enoxaparin 30mg/0.3ml syringe SUBCUT SCH (09:08)
[2019-01-12 09:22] LABS: ALANINE AMINOTRANSFERASE 61 U/L (12-78); ALBUMIN/GLOBULIN RATIO 0.8 (1.1-1.5); ALKALINE PHOSPHATASE 130 IU/L (46-116); ANION GAP 11 (8-16); ASPARTATE AMINO TRANSFERASE 41 U/L (10-37); BILIRUBIN,TOTAL 0.3 MG/DL (0.1-1.0); BLOOD UREA NITROGEN 45 MG/DL (7-18); CALCIUM 8.4 MG/DL (8.5-10.1); CHLORIDE 108 MMOL/L (99-107); GLUCOSE 128 MG/DL (70-104); SODIUM 142 MMOL/L (135-145); TOTAL CARBON DIOXIDE 23.3 MMOL/L (24-32); TOTAL PROTEIN 6.7 G/DL (6.4-8.2); eGFR 53 ML/MIN
[2019-01-12 10:33] LABS: ANISOCYTOSIS 3+; HYPOCHROMASIA 1+; SCHISTOCYTES FEW
[2019-01-12 10:34] LABS: LARGE PLATELETS FEW; PLATELET ESTIMATE NORMAL
[2019-01-12 11:49] VITALS: BP 123/51
--- NOTE | 2019-01-12 16:12 | NUR ---
Report called to receiving facility ([facility])
--- NOTE | 2019-01-12 17:43 | NUR ---
Patient transferred to [facility] via [facility] stable and appropriate. All belongings taken from room. IV removed, secured entrance monitor removed. Report called to facility.
== END 2019-01-12 17:43 | DRG 291 ==
LOC: ER 15:54 → SUR 3N 21:22 → CMPBEDREQ 01-10 19:44
PROVIDERS: ADMIT Hospitalist; ATTEND Family Medicine
PROC: 4B02XTZ Measurement of Cardiac Defibrillator, External Approach (ICD-10-PCS; principal; 2019-01-10)
DX: I13.0 Hypertensive heart and chronic kidney disease with heart failure and stage 1 through stage 4 chronic kidney disease, or unspecified chronic kidney disease (principal); I50.23 Acute on chronic systolic (congestive) heart failure; E43 Unspecified severe protein-calorie malnutrition; Z68.1 Body mass index [BMI] 19.9 or less, adult; I47.2 Ventricular tachycardia; I95.9 Hypotension, unspecified; I48.91 Unspecified atrial fibrillation; D64.9 Anemia, unspecified; R74.0 Nonspecific elevation of levels of transaminase and lactic acid dehydrogenase [LDH]; E11.22 Type 2 diabetes mellitus with diabetic chronic kidney disease; E87.6 Hypokalemia; N18.9 Chronic kidney disease, unspecified; Z66 Do not resuscitate; Z80.3 Family history of malignant neoplasm of breast; Z95.810 Presence of automatic (implantable) cardiac defibrillator; Z80.8 Family history of malignant neoplasm of other organs or systems; Z90.49 Acquired absence of other specified parts of digestive tract; Z79.4 Long term (current) use of insulin
CPT/HCPCS: 36415; 71045; 73502; 80048; 80053; 80162; 81001; 82948; 83036; 83605; 83880; 84443; 85025; 85610; 87040; 87081; 93308; 96374; 97110; 97116; 97161; 97530; 99285; G0378; J1650; J1815; J1940

== ENCOUNTER 2019-05-13 13:31 | Inpatient (IN) | payer MEDICARE, OTHER ==
[~2019-05-13] VITALS: Ht 165.1 cm; Wt 46.3 kg
[2019-05-13 15:03] LABS: CLARITY,URINE CLOUDY (Clear); COLOR,URINE YELLOW (Yellow); GLUCOSE, URINE NEGATIVE (Neg); KETONES,URINE NEGATIVE (Neg); LEUKOCYTE ESTERASE ,URINE SMALL (Neg); NITRITES, URINE NEGATIVE (Neg); OCCULT BLOOD,URINE MODERATE (Neg); PH,URINE 5.5 (4.8-8.0); PROTEIN,URINE 30 mg/dl (Neg); UROBILINOGEN,URINE 0.2 E.U/dL (0.2-1.0)
[2019-05-13 15:03] LABS: MEAN CORPUSCULAR HGB CONC 32.1 g/dL (33.0-36.5); MEAN PLATELET VOLUME 8.7 FL (7.4-10.4); WHITE BLOOD COUNT 5.3 X10'3 (4.5-11.0)
[2019-05-13 15:04] LABS: HEMATOCRIT 41.8 % (35.0-45.0); HEMOGLOBIN 13.4 g/dl (12.0-16.0); MEAN CORPUSCULAR HEMOGLOBIN 25.7 PG (27.0-31.0); RED BLOOD COUNT 5.22 X10'6 (4.20-5.60)
[2019-05-13 15:05] LABS: UA COLLECTION TYPE STRAIGHT CATH
[2019-05-13 15:06] LABS: PARTIAL THROMBOPLASTIN TIME 33 SECONDS (22-32)
[2019-05-13 15:07] LABS: ALANINE AMINOTRANSFERASE 44 U/L (12-78); ALBUMIN 3.4 G/DL (3.4-5.0); ALKALINE PHOSPHATASE 166 IU/L (46-116); ANION GAP 12 (8-16); ASPARTATE AMINO TRANSFERASE 45 U/L (10-37); BILIRUBIN,TOTAL 0.7 MG/DL (0.1-1.0); BLOOD UREA NITROGEN 44 MG/DL (7-18); BUN/CREATININE RATIO 27.2 (6.6-38.0); CALCIUM 8.9 MG/DL (8.5-10.1); CHLORIDE 104 MMOL/L (99-107); CREATININE 1.62 MG/DL (0.40-0.90); GLUCOSE 104 MG/DL (70-104); POTASSIUM 4.2 MMOL/L (3.5-5.1); SODIUM 139 MMOL/L (135-145); TOTAL CARBON DIOXIDE 23.1 MMOL/L (24-32); TOTAL PROTEIN 6.9 G/DL (6.4-8.2); eGFR 30 ML/MIN
[2019-05-13 15:09] LABS: URINE AMPHETAMINE SCREEN NEGATIVE (Neg); URINE BARBITUATE SCREEN POSITIVE (Neg); URINE BENZODIAZEPINES SCREEN NEGATIVE (Neg); URINE CANNABINOID SCREEN NEGATIVE (Neg); URINE COCAINE SCREEN NEGATIVE (Neg); URINE METHADONE SCREEN NEGATIVE (Neg); URINE OPIATE SCREEN POSITIVE (Neg); URINE PHENCYCLIDINE SCREEN NEGATIVE (Neg)
[2019-05-13 15:12] LABS: MUCUS STRANDS FEW /LPF (Neg)
[2019-05-13 15:13] LABS: SQUAMOUS EPITHELIAL CELL,UR FEW /LPF (FEW)
[2019-05-13 15:14] LABS: WBC,URINE 30-50 /HPF (0-4)
[2019-05-13 15:15] LABS: BACTERIA,URINE 1+ /HPF (Neg); WBC CLUMPS,URINE MANY /HPF (NEGATIVE)
[2019-05-13 15:16] LABS: TRANSITIONAL EPI CELLS,URINE FEW /HPF
[2019-05-13 15:17] LABS: ETHANOL < 0.010 GM/DL (0.0-0.010)
[2019-05-13 15:27] LABS: PLATELET COUNT 43 X10'3 (140-440)
[2019-05-13 15:30] LABS: ANISOCYTOSIS 3+; BURR CELLS 1+; MICROCYTOSIS 1+; PLATELET ESTIMATE DECREASED; POIKILOCYTOSIS FEW; TOTAL CELLS COUNTED 100
[2019-05-13 15:31] LABS: ACANTHOCYTES FEW
[2019-05-13] MEDS ORDERED: CefTRIAXone 2gm/D5W 50ml 50 ML IV ONE (15:35)
[2019-05-13] MEDS ORDERED: normal saline 1000ML IV soln IV ONE (15:35)
[2019-05-13] MEDS ORDERED: morphine 2 MG/ML inj. syringe IV PRN (16:20)
[2019-05-13] MEDS ORDERED: mag hydrox/Alum hydrox/simeth 30ml oral suspension PO PRN (16:20)
[2019-05-13] MEDS ORDERED: acetaminophen 325mg tablet PO PRN ×2 (16:20)
[2019-05-13] MEDS ORDERED: MESSAGE TO PHARMACY PO ONE (16:20)
[2019-05-13] MEDS ORDERED: glucagon, human recombinant 1mg kit SUBCUT PRN (16:20)
[2019-05-13] MEDS ORDERED: ondansetron/PF 4mg/2ml inj IV PRN (16:20)
[2019-05-13] MEDS ORDERED: magnesium hydroxide 30ml (MOM) UD suspension PO PRN (16:20)
[2019-05-13] MEDS ORDERED: insulin Lispro (HumaLOG) vial - multi-dose SQ SCH (16:20)
[2019-05-13] MEDS ORDERED: dextrose ORAL solution 15 GM/59 ML bottle PO PRN ×2 (16:20)
[2019-05-13] MEDS: normal saline 1000ml 1,000 ML IV SCH (17:12)
[2019-05-13 17:30] LABS: HEMOGLOBIN A1C 6.3 % (4.5-6.2)
--- NOTE | 2019-05-13 18:50 | NUR ---
Patient in room ED 12. I have received report from MAVRIN Reardon and had the opportunity to ask questions and assume patient care.
[2019-05-13 19:30] VITALS: BP 107/48
[2019-05-13 20:00] VITALS: BP_SYST 116; BP_SYST 98; BP_DIAS 53; BP_DIAS 55
[2019-05-13] MEDS: furosemide 20 MG/2 ML vial IV SCH (20:30)
[2019-05-13] MEDS ORDERED: insulin glargine (Lantus) pen - multi-dose SQ SCH (21:00)
[2019-05-13 22:00] VITALS: BP 98/56
[2019-05-13] MEDS: HYDROcodone/acetaminophen 5mg/325mg tablet PO PRN (22:00)
[2019-05-14] VITALS (7 sets, daily range): BP systolic 96–122; BP diastolic 35–83
[2019-05-14] MEDS: normal saline 1000ml 1,000 ML IV SCH (03:06)
[2019-05-14] MEDS: HYDROcodone/acetaminophen 5mg/325mg tablet PO PRN (04:48)
--- NOTE | 2019-05-14 06:10 | NUR ---
Patient in room ORTHO 4009. I have received report from Mara OWNG and had the opportunity to ask questions and assume patient care.
[2019-05-14 06:23] LABS: BASOPHILS # (AUTO) 0.1 X10'3 (0-0.2); BASOPHILS % (AUTO) 1.8 % (0-1); EOSINOPHILS % (AUTO) 0.9 % (0-6); HEMATOCRIT 35.2 % (35.0-45.0); HEMOGLOBIN 11.2 g/dl (12.0-16.0); LYMPHOCYTES # (AUTO) 1.9 X10'3 (1.1-4.8); LYMPHOCYTES % (AUTO) 38.3 % (21-51); MEAN CORPUSCULAR HEMOGLOBIN 25.7 PG (27.0-31.0); MEAN CORPUSCULAR HGB CONC 31.8 g/dL (33.0-36.5); MEAN CORPUSCULAR VOLUME 80.8 FL (78-98); MEAN PLATELET VOLUME 9.6 FL (7.4-10.4); MONOCYTES # (AUTO) 0.6 X10'3 (0-0.9); MONOCYTES % (AUTO) 11.8 % (2-12); NEUTROPHILS # (AUTO) 2.4 X10'3 (1.8-7.7); NEUTROPHILS % (AUTO) 47.2 % (42-75); PLATELET COUNT 60 X10'3 (140-440); RED BLOOD COUNT 4.35 X10'6 (4.20-5.60); RED CELL DISTRIBUTION WIDTH 21.5 % (11.5-14.5)
[2019-05-14] MEDS: dextrose 50%-water 50ml dispensing syringe IV PRN ×2 (06:50→12:24)
--- NOTE | 2019-05-14 06:54 | NUR ---
Problems reprioritized. Patient report given, questions answered & plan of care reviewed with MARVIN Blanco.
[2019-05-14 07:01] LABS: PLATELET ESTIMATE DECREASED
[2019-05-14 07:02] LABS: ANISOCYTOSIS 3+; POLYCHROMASIA FEW
[2019-05-14 07:03] LABS: ACANTHOCYTES 2+; ALBUMIN 2.8 G/DL (3.4-5.0); ANION GAP 10 (8-16); BLOOD UREA NITROGEN 40 MG/DL (7-18); BURR CELLS 2+; CHLORIDE 108 MMOL/L (99-107); CREATININE 1.48 MG/DL (0.40-0.90); ELLIPTOCYTES 1+; POTASSIUM 3.3 MMOL/L (3.5-5.1); SODIUM 140 MMOL/L (135-145); eGFR 34 ML/MIN
[2019-05-14 07:29] LABS: GLUCOSE 24 MG/DL (70-104)
[2019-05-14] MEDS ORDERED: butalbital/acetaminophen/caffeine (Fioricet) tablet PO PRN (09:20)
[2019-05-14] MEDS ORDERED: ALPRAZolam 0.25mg tablet PO PRN (09:20)
[2019-05-14] MEDS: furosemide 20 MG/2 ML vial IV SCH ×2 (09:25→20:09)
[2019-05-14] MEDS: CefTRIAXone/D5W-Rocephin 1gm 50 ML IV SCH (09:25)
[2019-05-14] MEDS: dextrose 5%-water 1,000 ML IV SCH (12:39)
[2019-05-14] MEDS ORDERED: potassium Cl 20 mEq SR tablet PO PRN ×2 (13:00)
[2019-05-14] MEDS ORDERED: magnesium Cl slow-release 64mg tablet PO PRN (13:00)
[2019-05-14] MEDS ORDERED: potassium CL 10mEq/100ml bag 100 ML IV PRN (13:00)
[2019-05-14] MEDS ORDERED: magnesium 4gm in 100ml NS 100 ML IV PRN (13:00)
[2019-05-14] MEDS: digoxin 125mcg (0.125mg) tablet PO SCH (13:22)
--- NOTE | 2019-05-14 13:49 | NUR ---
DM consult: Pt with A1c 6.3, DM education not warranted at this time. Malnutrition consult: Pt reports wt loss with decreased appetite per malnutrition risk screening with RN. Unable to obtain information from pt at this time as pt admit with increasing confusion and is A/O x 2 per physical assessment. No documented wt yet this admit however pt chronically with low weight per records. Pt on a CHO controlled diet documented with 25% PO intake of milk and starch/soup with 100% PO intake of protein first meal. Pt with no significant decrease in muscle strength however with bilat foot 2+ edema. No visible muscle/fat wasting noted in MD notes. Pt currently lacks a minimum of two criteria for malnutrition at this time. Noted that Ensure High Protein has been ordered TID. Will continue to follow and monitor need for further nutrition intervention. Addendum: 05/14/19 at [address] Amended: Links added.
[2019-05-14] MEDS: lactose-reduced food (Ensure High Protein) 237ml bottle PO SCH (18:00)
--- NOTE | 2019-05-14 18:00 | NUR ---
Called for stroke alert patient awake non verbal with twitching of the left face, head ct completed and neuro telemedicine initiated. See neurology consult.
--- NOTE | 2019-05-14 18:30 | NUR ---
[facility]PONSE CALLED [phone]. Patient transferred to ICU
[2019-05-14 18:31] LABS: ABG BASE EXCESS -9.9 mmol/L (-2.0-3.0); ABG HCO3 14.9 mmol/L (22.0-26.0); ABG OXYGEN SATURATION 95.4 % (95-98); ABG PCO2 (T) 28.1 mmHg (35.0-45.0); ABG PH (T) 7.336 (7.350-7.450); ABG PO2 (T) 75.4 mmHg (83-108); ALLEN'S TEST Positive; FLOW 3 L/min; FMetHb 0.1 % (0.3-1.12); FO2Hb 94.4 % (94-100); PATIENT TEMPERATURE 35.4; TOTAL HEMOGLOBIN 13.8 G/dl (12.0-16.0)
[2019-05-14] MEDS ORDERED: LORazepam 2 mg/ml vial ONE (18:35)
[2019-05-14] MEDS ORDERED: levetiracetam inj 1,000 MG in normal saline 100ml IV soln 90 ML IV STA (18:36)
[2019-05-14] MEDS ORDERED: LORazepam 2 mg/ml vial IV ONE (18:40)
[2019-05-14 18:55] LABS: RED CELL DISTRIBUTION WIDTH 22.9 % (11.5-14.5); WHITE BLOOD COUNT 6.3 X10'3 (4.5-11.0)
[2019-05-14 18:57] LABS: HEMATOCRIT 43.9 % (35.0-45.0); HEMOGLOBIN 13.8 g/dl (12.0-16.0); MEAN CORPUSCULAR HEMOGLOBIN 25.7 PG (27.0-31.0); MEAN CORPUSCULAR HGB CONC 31.4 g/dL (33.0-36.5); MEAN CORPUSCULAR VOLUME 81.7 FL (78-98); MEAN PLATELET VOLUME 9.1 FL (7.4-10.4); PLATELET COUNT 65 X10'3 (140-440); RED BLOOD COUNT 5.37 X10'6 (4.20-5.60)
--- NOTE | 2019-05-14 19:00 | NUR ---
CALLED SON VIVIAN AND NOTIFIED HIM OF THE PATIENT BEING MOVED TO [address], AND THE SON WILL NOTIFY THE .
[2019-05-14 19:08] LABS: ALBUMIN 3.2 G/DL (3.4-5.0); ANION GAP 13 (8-16); BLOOD UREA NITROGEN 40 MG/DL (7-18); BUN/CREATININE RATIO 23.3 (6.6-38.0); CHLORIDE 105 MMOL/L (99-107); CREATININE 1.72 MG/DL (0.40-0.90); GLUCOSE 148 MG/DL (70-104); PHOSPHORUS 4.1 MG/DL (2.3-4.5); POTASSIUM 4.1 MMOL/L (3.5-5.1); SODIUM 136 MMOL/L (135-145); TOTAL CARBON DIOXIDE 18.2 MMOL/L (24-32); eGFR 28 ML/MIN
--- NOTE | 2019-05-14 19:16 | NUR ---
Report given to Gisselle Dsouza in ICU
[2019-05-14 19:19] LABS: ACANTHOCYTES 2+; ANISOCYTOSIS 3+; BURR CELLS 2+; ELLIPTOCYTES 1+; PLATELET ESTIMATE DECREASED; POLYCHROMASIA FEW; TOTAL CELLS COUNTED 100
[2019-05-14 19:29] LABS: LACTIC SEPSIS 4.8 MMOL/L (0.4-2.0)
[2019-05-14 19:46] LABS: ABG BASE EXCESS -10.6 mmol/L (-2.0-3.0); ABG HCO3 16.4 mmol/L (22.0-26.0); ABG OXYGEN SATURATION 96.5 % (95-98); ABG PCO2 (T) 36.6 mmHg (35.0-45.0); ABG PH (T) 7.257 (7.350-7.450); ABG PO2 (T) 105.8 mmHg (83-108); FCOHb 0.8 % (0.5-1.5); FMetHb 0.1 % (0.3-1.12); FO2Hb 95.6 % (94-100); TOTAL HEMOGLOBIN 13.4 G/dl (12.0-16.0)
[2019-05-14] MEDS ORDERED: LORazepam 2 mg/ml vial IV PRN (19:55)
[2019-05-14] MEDS: omega-3 acid ethyl esters 1GM capsule PO SCH (20:00)
[2019-05-14] MEDS ORDERED: furosemide 20 MG/2 ML vial IV ONE (20:20)
[2019-05-14] MEDS ORDERED: furosemide 40mg/4ml inj IV ONE (20:20)
[2019-05-14] MEDS ORDERED: atorvastatin 20mg tablet PO SCH (21:00)
[2019-05-15] VITALS (28 sets, daily range): BP systolic 69–139; BP diastolic 23–73
[2019-05-15] MEDS: dextrose 5%-water 1,000 ML IV SCH (01:59)
[2019-05-15] MEDS: dextrose 50%-water 50ml dispensing syringe IV PRN ×4 (02:19→12:15)
[2019-05-15 04:55] LABS: ABG HCO3 15.5 mmol/L (22.0-26.0); ABG OXYGEN SATURATION 95.6 % (95-98); ABG PCO2 (T) 28.1 mmHg (35.0-45.0); ABG PH (T) 7.353 (7.350-7.450); ABG PO2 (T) 74.4 mmHg (83-108); FCOHb 0.8 % (0.5-1.5); FLOW 15 L/min; FO2Hb 94.8 % (94-100); PATIENT TEMPERATURE 35.8; RESPIRATORY RATE (OBSERVED) 32 b/min
[2019-05-15 05:19] LABS: EOSINOPHILS # (AUTO) 0.1 X10'3 (0-0.9); HEMATOCRIT 39.1 % (35.0-45.0); MEAN CORPUSCULAR HEMOGLOBIN 26.1 PG (27.0-31.0)
[2019-05-15 05:23] LABS: BASOPHILS # (AUTO) 0.1 X10'3 (0-0.2); EOSINOPHILS % (AUTO) 1.2 % (0-6); HEMOGLOBIN 12.5 g/dl (12.0-16.0); LYMPHOCYTES # (AUTO) 1.8 X10'3 (1.1-4.8); LYMPHOCYTES % (AUTO) 31.4 % (21-51); MEAN CORPUSCULAR HGB CONC 31.8 g/dL (33.0-36.5); MONOCYTES # (AUTO) 0.6 X10'3 (0-0.9); MONOCYTES % (AUTO) 10.3 % (2-12); NEUTROPHILS # (AUTO) 3.2 X10'3 (1.8-7.7); NEUTROPHILS % (AUTO) 56.1 % (42-75); PLATELET COUNT 55 X10'3 (140-440); RED BLOOD COUNT 4.77 X10'6 (4.20-5.60); RED CELL DISTRIBUTION WIDTH 22.2 % (11.5-14.5); WHITE BLOOD COUNT 5.7 X10'3 (4.5-11.0)
[2019-05-15 06:30] LABS: ACANTHOCYTES 2+; ANISOCYTOSIS 3+; BURR CELLS 2+; ELLIPTOCYTES 1+; PLATELET ESTIMATE DECREASED; POLYCHROMASIA FEW; TOTAL CELLS COUNTED 100
--- NOTE | 2019-05-15 06:30 | NUR ---
Problems reprioritized. Patient report given, questions answered & plan of care reviewed with MARVIN Miller.
[2019-05-15 06:40] LABS: ALANINE AMINOTRANSFERASE 47 U/L (12-78); ALBUMIN 3.2 G/DL (3.4-5.0); ALKALINE PHOSPHATASE 185 IU/L (46-116); ANION GAP 14 (8-16); ASPARTATE AMINO TRANSFERASE 74 U/L (10-37); BILIRUBIN,TOTAL 0.7 MG/DL (0.1-1.0); BLOOD UREA NITROGEN 41 MG/DL (7-18); BUN/CREATININE RATIO 22.8 (6.6-38.0); CHLORIDE 103 MMOL/L (99-107); CHOL/HDL RATIO 1.5 (0.00-4.99); CHOLESTEROL 108 MG/DL (0-200); GLUCOSE 66 MG/DL (70-104); HDL CHOLESTEROL 71 MG/DL (35-60); LDL CHOLESTEROL 33 MG/DL (50-100); POTASSIUM 4.4 MMOL/L (3.5-5.1); SODIUM 136 MMOL/L (135-145); TOTAL CARBON DIOXIDE 19.5 MMOL/L (24-32); TOTAL PROTEIN 6.5 G/DL (6.4-8.2); TRIGLYCERIDES 31 MG/DL (20-135); eGFR 27 ML/MIN
[2019-05-15] MEDS ORDERED: isosorbide dinitrate 30mg tablet PO SCH (08:00)
[2019-05-15] MEDS ORDERED: fenofibrate 145mg tablet PO SCH (08:00)
[2019-05-15] MEDS: lactose-reduced food (Ensure High Protein) 237ml bottle PO SCH ×2 (08:00→13:00)
[2019-05-15] MEDS ORDERED: levoTHYROXINE 112mcg tablet PO SCH (08:00)
[2019-05-15] MEDS ORDERED: K and/or MAG REPLACEMENT MC SCH (08:00)
[2019-05-15] MEDS ORDERED: lisinopril 5mg tablet PO SCH (08:00)
[2019-05-15] MEDS ORDERED: furosemide 40mg/4ml inj IV SCH (08:00)
[2019-05-15] MEDS ORDERED: levetiracetam 250mg tablet PO SCH (08:00)
[2019-05-15] MEDS ORDERED: digoxin 125mcg (0.125mg) tablet PO SCH (08:00)
[2019-05-15] MEDS: omega-3 acid ethyl esters 1GM capsule PO SCH (08:00)
[2019-05-15] MEDS ORDERED: aspirin 325mg tablet PO SCH (08:00)
--- NOTE | 2019-05-15 08:15 | NUR ---
Patient in room CICU 2010. I have received report from Angela WONG and had the opportunity to ask questions and assume patient care.
[2019-05-15] MEDS: CefTRIAXone/D5W-Rocephin 1gm 50 ML IV SCH (08:24)
[2019-05-15] MEDS: digoxin 125mcg (0.125mg) tablet PO SCH (08:34)
[2019-05-15] MEDS: Levetiracetam-NS 500mg/100ml 100 ML IV SCH ×2 (08:42→20:00)
--- NOTE | 2019-05-15 09:45 | NUR ---
Previous nurse Angela reported pt. "aspirated on orange juice." Current RN was able to crush pertinent PO meds and give them to pt. in applesauce. Pt. seemed to swallow applesauce without difficulty. Will continue to monitor. CT scan was originally planned for 1000 this am per dyno technician but has been rescheduled for 1700 this evening per their protocoo
--- NOTE | 2019-05-15 10:56 | NUR ---
Pt. anxious. Tachypnic, picking at IV lines and monitor cables. Medicated with Xanax per PRN order.
--- NOTE | 2019-05-15 11:00 | NUR ---
EEG being started now.
--- NOTE | 2019-05-15 11:09 | NUR ---
Dr. Phillips in to see pt. CT scan cancelled per Dr. Phillips. Addendum: 05/15/19 at 1123 by Latonia Lugo RN Dr. Phillips informed that previous nurse noted pt. may have "aspirated on orange juice" and that pt. was unable to eat breakfast this am due to increased work of breathing.
[2019-05-15] MEDS ORDERED: albumin (human) 25% 100ml IV 100 ML IV ONE (12:21)
[2019-05-15] MEDS ORDERED: albumin (human) 25% 100 ML IV solution IV ONE ×2 (12:25→13:55)
--- NOTE | 2019-05-15 12:34 | NUR ---
BP low. (70s) despite multiple attempts to get accurate BP with manual, different sizes. Pt. placed in reverse trendelenberg. Dr. Phillips notified. Order for Albumin received and infused. BG @ 1210 was 51. Treated with 1/2 amp D50. BG at 1225 was 110.
--- NOTE | 2019-05-15 12:40 | NUR ---
EEG was incomplete due to pt. unable to lie still and cooperate.
--- NOTE | 2019-05-15 13:32 | NUR ---
RN spoke with dtr in law about pt's low BP. She stated pt. does not want resusitative measures done but the two sons do. Awaiting son, Ashkan's arrival from [facility] today so they can make decisions re. plan of care going forward.
--- NOTE | 2019-05-15 13:34 | NUR ---
RN called Dr. Phillips and the call went to voicemail.
--- NOTE | 2019-05-15 13:47 | NUR ---
RN spoke with son Usman re. pt's condition. Joleen FARR speaking with pt. now re. plan of care if pt. declines further.
--- NOTE | 2019-05-15 14:05 | NUR ---
Second Albumin ordered and given per Kathryn Michel.
--- NOTE | 2019-05-15 14:33 | NUR ---
Vikas Mary at bedside.
--- NOTE | 2019-05-15 14:48 | NUR ---
Temp 35.1 Warm blankets provided.
--- NOTE | 2019-05-15 15:05 | NUR ---
BP 70s/30s RN told son Usman that the doctor should be called and we should intervene at this point. Usman stated his mom, the pt. would not want anything more done and she wished to be a DNR prior to this hospitalization.
--- NOTE | 2019-05-15 15:13 | NUR ---
Charge nurse and Kathryn Michel informed of pt's son's wish for her to be a DNR.
--- NOTE | 2019-05-15 15:23 | NUR ---
Son Ashkan here now. Kathryn Michel confirmed with sons that they wish for their mother to be a DNR with comfort care. Orders received and placed in [facility] per Kathryn Michel.
[2019-05-15] MEDS: morphine 2 MG/ML inj. syringe IV PRN ×2 (16:21→20:20)
--- NOTE | 2019-05-15 16:26 | NUR ---
Pt. confused but recognizes family members.Pt. talking with sons and . Told them to "get the TV at the TV store NOW." Medicated with Morphine for discomfort. Addendum: 05/15/19 at 1740 by Latonia Lugo RN Correction: is not at bedside.
--- NOTE | 2019-05-15 17:18 | NUR ---
Pt. lying on left side with even, unlabored respirations and closed eyes. Sons and remain at bedside. Addendum: 05/15/19 at 1740 by Latonia Lugo RN Correction: is not at bedside.
--- NOTE | 2019-05-15 18:30 | NUR ---
Patient in room CICU 2010. I have received report from MARVIN Lincoln and had the opportunity to ask questions and assume patient care.
[2019-05-15] MEDS: LORazepam 2 mg/ml vial IV PRN ×2 (18:43→23:10)
--- NOTE | 2019-05-15 21:24 | NUR ---
Spoke with Jennifer at [facility] and since pt is not on a ventilator and is not asystolic yet, they cannot open a case as she does not yet qualify.
[2019-05-15] MEDS: morphine 10mg/ml inj. IV PRN ×2 (21:40→22:45)
[2019-05-16] VITALS: BP 69/27
[2019-05-16] MEDS: morphine 10mg/ml inj. IV PRN ×3 (01:02→03:13)
[2019-05-16] MEDS: LORazepam 2 mg/ml vial IV PRN (03:14)
[2019-05-16 04:00] VITALS: BP 45/21
[2019-05-16] MEDS: morphine 10mg/0.5ml (conc. morphine) oral syringe PO PRN ×5 (04:27→16:43)
[2019-05-16 06:00] VITALS: BP 52/24
--- NOTE | 2019-05-16 06:26 | NUR ---
Problems reprioritized. Patient report given, questions answered & plan of care reviewed with MARVIN Blancas.
--- NOTE | 2019-05-16 06:30 | NUR ---
Patient in room CICU 2010. I have received report from police shift commander rn and had the opportunity to ask questions and assume patient care.
[2019-05-16 08:00] VITALS: BP 61/31
--- NOTE | 2019-05-16 10:00 | NUR ---
family at bedside, plan of care reviewed with same, support and encourgement given, explanation of current status of mother, and response to medication, questions answered. plan to move to medical floor relayed to family members
[2019-05-16] MEDS ORDERED: LORazepam 2 mg/ml vial IM PRN (12:00)
--- NOTE | 2019-05-16 12:00 | NUR ---
Pt has been made DNR w/ comfort care. [facility] 05/13. Will continue to follow per protocol. Addendum: 05/16/19 at [address] Amended: Links added.
--- NOTE | 2019-05-16 14:57 | NUR ---
report called to Citlalli Dsouza, pt transfered via bed to 351
--- NOTE | 2019-05-16 14:57 | NUR ---
Patient in room CICU 2010. I have received report from Magalis WONG at [facility] and had the opportunity to ask questions and assume patient care.
--- NOTE | 2019-05-16 18:30 | NUR ---
Problems reprioritized. Patient report given, questions answered & plan of care reviewed with BRIGID WONG.
--- NOTE | 2019-05-16 18:45 | NUR ---
Patient in room [facility] 351. I have received report from Jailyn WONG and had the opportunity to ask questions and assume patient care.
--- NOTE | 2019-05-16 19:42 | NUR ---
RN IS TO DOCUMENT YES TO ALL APPLICABLE AREAS Pronouncement of : 1. Time Physician Notified: 1934 2. Date of :05/16/19 3. Time of : 1914 4. DNR/Withdraw life support documented: yes 5. Monitor strip has been placed on chart: yes 6. Assessment process is of one-minute duration and includes following criteria: a) Patient is unresponsive to all stimuli: yes b) Pupils fixed and non-reactive: yes c) Auscultation of precordium reveals absence of heart tones: yes d) Auscultation of lungs reveals absence of breath sounds: yes e) Absence of blood pressure / all vital signs: yes f) QRS complexes are not present on monitor / EKG strip: yes g) Pacer spikes without capture: yes 4. Comments: Family notified by phone at 1919 and present at bedside at 1931.
--- NOTE | 2019-05-16 21:35 | NUR ---
Pt passed at 191 this evening, family not present. FC and all other medical implements removed, and family notified. [facility] called. [facility] arrived at approximately 2114, all paperwork signed. Pt left the unit at 2134.
== END 2019-05-16 19:15 | disposition expired | DRG 689 ==
LOC: ER 13:32 → ED HOLD 17:25 → ORTHO 4S 19:15 → OBSVTOIN 05-14 11:31 → CICU 2S 05-14 18:55 → SUR 3N 05-16 15:00
PROVIDERS: ADMIT Internal Medicine; ATTEND Internal Medicine
DX: N39.0 Urinary tract infection, site not specified (principal); J96.90 Respiratory failure, unspecified, unspecified whether with hypoxia or hypercapnia; I50.43 Acute on chronic combined systolic (congestive) and diastolic (congestive) heart failure; G93.40 Encephalopathy, unspecified; I11.0 Hypertensive heart disease with heart failure; D69.6 Thrombocytopenia, unspecified; E03.9 Hypothyroidism, unspecified; E11.9 Type 2 diabetes mellitus without complications; E78.5 Hyperlipidemia, unspecified; F41.9 Anxiety disorder, unspecified; I25.10 Atherosclerotic heart disease of native coronary artery without angina pectoris; R56.9 Unspecified convulsions; E87.6 Hypokalemia; I25.5 Ischemic cardiomyopathy; Z51.5 Encounter for palliative care; Z80.3 Family history of malignant neoplasm of breast; Z80.8 Family history of malignant neoplasm of other organs or systems; Z87.891 Personal history of nicotine dependence; Z95.0 Presence of cardiac pacemaker; Z88.8 Allergy status to other drugs, medicaments and biological substances
CPT/HCPCS: 36415; 36600; 70450; 71045; 80048; 80053; 80061; 80162; 80305; 80320; 81001; 82140; 82607; 82803; 82948; 83036; 83605; 83880; 84100; 84145; 84443; 85018; 85025; 85610; 85730; 87040; 87077; 87081; 87088; 87186; 93005; 94760; 96365; 96372; 99285; G0378; J0696; J1815; J1940; J1953; J2060; J2270; J7030; J7070; P9047